=== PATIENT | female | born 1945 | race Caucasian/White ===

== ENCOUNTER 2016-08-14 12:17 | Day surgery (SDC) | payer MEDICARE, OTHER ==
[~2016-08-14 12:17] MED LIST: DIPHENHYDRAMINE HCL 50 MG/ML VIAL ONE; EPINEPHRINE INJ 1 MG/10 ML DISP.SYRIN ONE; FLUMAZENIL INJ 0.5 MG/5 ML VIAL IV ONE; GLUCAGON,HUMAN RECOMB 1 MG INJ ONE; NALOXONE HCL INJ/PF 0.4 MG/1 ML SDV ONE; ONDANSETRON HCL INJ/PF 4 MG/2 ML SDV ONE; PROMETHAZINE HCL INJ 25 MG/1 ML VIAL ONE
[2016-08-14] MEDS: MIDAZOLAM 2 MG/2 ML INJ ONE ×2 (13:06→13:16)
[2016-08-14] MEDS: FENTANYL CITRATE INJ/PF 100 MCG/2 ML AMPUL ONE ×2 (13:08→13:12)
--- NOTE | 2016-08-14 13:27 | Operative Report ---
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 TISSUE REMOVED OR ALTERED: None. COMPLICATIONS: None. ESTIMATED BLOOD LOSS: none. INTRAOPERATIVE FINDINGS: 2 gastric AVMs along the lesser curvature status post ablation PROCEDURE: Patient tolerated the procedure well. No immediate postprocedure complications are noted. Patient is discharged in good condition. Discharge date 08/14/2016. Discharge diet: Regular. Discharge activity: Regular. Patient does have a 2-3 week follow-up to discuss findings. She is instructed to call the office or proceed to the emergency room to any further problems or questions.
[2016-08-14 14:37] VITALS: BP 121/90
[2016-08-14 14:49] LABS: HEMATOCRIT 35.9 % (36.0-47.0); HGB HCT DIFFERENCE -2.9; MEAN CORPUSCULAR HEMOGLOBIN 28.6 pg (27.0-33.4); MEAN CORPUSCULAR HGB CONC 30.8 g/dL (32.0-36.0); RED BLOOD COUNT 3.86 10^6/uL (3.72-5.28); RED CELL DISTRIBUTION WIDTH 18.9 % (11.5-14.0)
[2016-08-14 15:11] LABS: MEAN CORPUSCULAR VOLUME 93 fl (80-97)
== END 2016-08-14 14:40 | disposition home or self-care (01) ==
LOC: END 12:17
PROVIDERS: ATTEND Internal Medicine Gastroenterology
PROC: 0D568ZZ Destruction of Stomach, Via Natural or Artificial Opening Endoscopic (ICD-10-PCS; principal; 2016-08-14 13:00)
DX: Q27.33 Arteriovenous malformation of digestive system vessel (principal); D64.9 Anemia, unspecified
CPT/HCPCS: 43270; 36415; 85027; J2250; J3010; J0171; J1200; J1610; J2310; J2405; J2550; J3490

== ENCOUNTER → 2016-09-15 | Outpatient (CLI) | payer MEDICARE, OTHER ==
[2016-09-15 11:12] LABS: ALANINE AMINOTRANSFERASE 16 U/L (9-52); ALBUMIN 4.6 g/dL (3.5-5.0); ALKALINE PHOSPHATASE 91 U/L (38-126); ANION GAP 9 (5-19); ASPARTATE AMINO TRANSFERASE 16 U/L (14-36); BILIRUBIN,TOTAL 0.5 mg/dL (0.2-1.3); BLOOD UREA NITROGEN 16 mg/dL (7-20); CALCIUM 10.5 mg/dL (8.4-10.2); CARBON DIOXIDE 29 mmol/L (22-30); CHLORIDE 103 mmol/L (98-107); CREATININE RESULT 0.88 mg/dL (0.52-1.25); GLUCOSE 101 mg/dL (75-110); POTASSIUM 5.3 mmol/L (3.6-5.0); SODIUM 140.7 mmol/L (137-145); TOTAL PROTEIN 7.1 g/dL (6.3-8.2)
[2016-09-16 14:23] LABS: ADRENOCORTICOTROPIC HORMONE 6.8 pg/mL (7.2-63.3)
== END ==
LOC: LAB 10:22
PROVIDERS: ATTEND Internal Medicine Endocrinology, Diabetes & Metabolism
DX: E27.9 Disorder of adrenal gland, unspecified (principal); E05.90 Thyrotoxicosis, unspecified without thyrotoxic crisis or storm
CPT/HCPCS: 36415; 80053; 82024; 82088; 82533; 84244

== ENCOUNTER → 2016-10-28 | Outpatient (CLI) | payer MEDICARE, OTHER | LOC: RAD 08:58 | PROVIDERS: ATTEND Internal Medicine Critical Care Medicine | DX: E27.9 Disorder of adrenal gland, unspecified (principal); J45.40 Moderate persistent asthma, uncomplicated; J43.9 Emphysema, unspecified; R07.9 Chest pain, unspecified; R91.8 Other nonspecific abnormal finding of lung field | CPT/HCPCS: 71250 ==

== ENCOUNTER 2017-06-16 07:53 | Outpatient (CLI) | payer MEDICARE, OTHER ==
[~2017-06-16 07:53] MED LIST changes: -DIPHENHYDRAMINE HCL 50 MG/ML VIAL ONE; -EPINEPHRINE INJ 1 MG/10 ML DISP.SYRIN ONE; +FERUMOXYTOL (NON-ESRD) 510 MG/NS 100 ML IV PRN; -FLUMAZENIL INJ 0.5 MG/5 ML VIAL IV ONE; -GLUCAGON,HUMAN RECOMB 1 MG INJ ONE; -NALOXONE HCL INJ/PF 0.4 MG/1 ML SDV ONE; +NORMAL SALINE 250 ML IV PRN; -ONDANSETRON HCL INJ/PF 4 MG/2 ML SDV ONE; -PROMETHAZINE HCL INJ 25 MG/1 ML VIAL ONE
[2017-06-16 09:14] VITALS: BP 150/63
== END 2017-06-16 09:45 | disposition home or self-care (01) ==
LOC: II 07:53 → 5TH 08:05 → II 09:45
PROVIDERS: ATTEND Internal Medicine
PROC: 3E033GC Introduction of Other Therapeutic Substance into Peripheral Vein, Percutaneous Approach (ICD-10-PCS; principal; 2017-06-16)
DX: D50.9 Iron deficiency anemia, unspecified (principal); N18.2 Chronic kidney disease, stage 2 (mild)
CPT/HCPCS: 96365; Q0138

== ENCOUNTER 2017-06-23 07:59 | Outpatient (CLI) | payer MEDICARE, OTHER ==
[2017-06-23 08:22] VITALS: BP 151/70
== END 2017-06-23 09:52 | disposition home or self-care (01) ==
LOC: II 07:59 → 5TH 08:03 → II 09:52
PROVIDERS: ATTEND Internal Medicine
PROC: 3E033GC Introduction of Other Therapeutic Substance into Peripheral Vein, Percutaneous Approach (ICD-10-PCS; principal; 2017-06-23)
DX: D50.9 Iron deficiency anemia, unspecified (principal); N18.2 Chronic kidney disease, stage 2 (mild)
CPT/HCPCS: 96365; Q0138

== ENCOUNTER 2017-08-04 15:11 | Emergency (ER) | payer MEDICARE, OTHER ==
[2017-08-04 15:21] VITALS: BP 96/78
--- NOTE | 2017-08-04 15:43 | ER Document Report ---
ED Wound - General Chief Complaint: Laceration Stated Complaint: RIGHT ARM LACERATION Time Seen by Provider: 08/04/17 15:38 Notes: Bumped right arm on door. + laceration to right forearm. No other injury. Minimal bleding TRAVEL OUTSIDE OF THE [place] IN LAST 30 DAYS: No - HPI Patient complains to provider of: Laceration Occurred: Just prior to arrival Onset/Duration: Sudden Quality of pain: No pain - Related Data Allergies/Adverse Reactions: pantoprazole sodium [From Protonix] Allergy (Intermediate, Verified 08/04/17 15: 12) itching pneumococcal vaccine [Pneumococcal Vaccine] Allergy (Intermediate, Verified 04/13 15:12) Swelling, ITCHING AT SITE ranitidine [Ranitidine] Allergy (Verified 08/04/17 15:12) ITCHING Past Medical History - General Information source: Patient - Social History Smoking Status: Current Every Day Smoker Drug Abuse: None Lives with: Alone Family History: None - Past Medical History Cardiac Medical History: Reports: Hx Atrial Fibrillation, Hx Hypercholesterolemia, Hx Hypertension, Hx Peripheral Vascular Disease - right FEMORAL stent Denies: Hx Congestive Heart Failure, Hx Coronary Artery Disease, Hx Heart Attack, Hx Pulmonary Embolism, Hx Heart Murmur Pulmonary Medical History: Reports: Hx Asthma, Hx Bronchitis, Hx COPD, Hx Pneumonia Denies: Hx Respiratory Failure, Hx Sleep Apnea, Hx Tuberculosis Neurological Medical History: Denies: Hx Cerebrovascular Accident, Hx Seizures Malignancy Medical History: Denies: Hx Leukemia, Hx Lung Cancer GI Medical History: Reports: Hx Gastroesophageal Reflux Disease, Hx Irritable Bowel. Denies: Hx Crohn's Disease, Hx Hiatal Hernia, Hx Liver Failure, Hx Pancreatitis, Hx Ulcer Musculoskeltal Medical History: Reports Hx Arthritis Infectious Medical History: Denies: Hx HIV Past Surgical History: Reports: Hx Appendectomy, Hx Bowel Surgery - colon resection, Hx Breast Surgery - BENIGN BX, Hx Hysterectomy, Hx Vascular Surgery - RIGHT FEMORAL ARTERY STENT. Denies: Hx Section, Hx Cholecystectomy, Hx Colostomy, Hx Coronary Artery Bypass Graft, Hx Gastric Bypass Surgery, Hx Herniorrhaphy, Hx Mastectomy, Hx Pacemaker, Hx Tonsillectomy, Hx Tubal Ligation - Immunizations Hx Diphtheria, Pertussis, Tetanus Vaccination: Yes Hx Pneumococcal Vaccination: 06/30/13 Review of Systems - Review of Systems Constitutional: No symptoms reported Cardiovascular: No symptoms reported Respiratory: No symptoms reported Skin: See HPI Physical Exam - Vital signs Vitals: Temp Pulse Resp BP Pulse Ox 98.2 F 88 16 96/78 L 97 08/04/17 15:20 08/04/17 15:20 08/04/17 15:20 08/04/17 15:20 08/04/17 15:20 Interpretation: Normal - General General appearance: Appears well, Alert - Extremities General upper extremity: Normal inspection, Nontender, Normal color, Normal ROM , Normal temperature General lower extremity: Normal inspection, Nontender, Normal color, Normal ROM , Normal temperature, Normal weight bearing. No: Nathalia's sign - Skin Skin Temperature: Warm Skin Moisture: Dry Skin Color: Normal Notes: 3 cm laceration to right forearm Course - Re-evaluation Re-evalutation: 08/04/17 15:39 laceration repaired withj dermabond . No issues. Tet UTD. - Vital Signs Vital signs: Temp Pulse Resp BP Pulse Ox 98.2 F 88 16 96/78 L 97 08/04/17 15:20 08/04/17 15:20 08/04/17 15:20 08/04/17 15:20 08/04/17 15:20 Procedures - Laceration/Wound Repair Right Upper Arm Wound length (cm): 3 Wound's Depth, Shape: Superficial Anesthetic type: Other - none Wound explored: Clean, No foreign body removed Wound Repaired With: Dermabond Layer Closure?: No Complications: No Discharge - Discharge Clinical Impression: Arm laceration Qualifiers: Encounter type: initial encounter Laterality: right Qualified Code(s): S41.111A - Laceration without foreign body of right upper arm, initial encounter Instructions: Laceration Care (OM) Additional Instructions: Dermabond (Skin Adhesive Closure) Skin adhesive (such as Dermabond) is a quick-drying glue that remains slightly flexible while it holds wound edges together. It can substitute for stitches on some cuts. The film will usually fall off the skin after 5 to 10 days. Keep the wound area clean and dry. Do not soak or scrub the wound. Don't swim. You can shower briefly after 24 hours. Gently blot the area dry with a soft towel. Don't apply ointments. If there is a dressing, change it immediately if it gets wet. Do not place tape directly over the adhesive film, because the tape may pull the film off your skin as you remove it. Don't bump the wound area. If there's risk of injury, keep the area well- padded. Avoid stretching of the skin. Do not scratch or pick at the adhesive film. Avoid prolonged exposure to sunlight or tanning lamps. Return if there is increasing pain, swelling, redness, or drainage, or if the wound edges seem to open or separate. Laceration Care Your laceration has been sutured to keep the skin edges aligned during healing. The time of suture removal depends on the nature and location of your cut. Please follow the care instructions the doctor has outlined for you and return for further care, according to the schedule you've been given. Keep the wound and dressing clean. Unless you were told otherwise, you may shower daily, blotting the wound dry with a clean, unused towel. At other times, If the dressing gets wet or blood soaked, remove it and blot the wound dry, then reapply a new dressing. Unless you were instructed otherwise, dressings should be changed at least daily. If any signs of infection occur (swelling, redness, increasing tenderness, red streaks, tender lumps in the armpit or groin above the laceration, or fever) , see the doctor immediately.
== END 2017-08-04 15:50 | disposition home or self-care (01) ==
LOC: ER 15:11
PROC: 0HQBXZZ Repair Right Upper Arm Skin, External Approach (ICD-10-PCS; principal; 2017-08-04)
DX: S41.111A Laceration without foreign body of right upper arm, initial encounter (principal); F17.200 Nicotine dependence, unspecified, uncomplicated; X58.XXXA Exposure to other specified factors, initial encounter
CPT/HCPCS: 99282

== ENCOUNTER → 2017-11-05 | Outpatient (CLI) | payer MEDICARE, OTHER ==
--- NOTE | 2017-11-05 10:48 | WOMENS IMAGING REPORT ---
EXAM DESCRIPTION: BONE DENSITY HIP/SPINE COMPLETED DATE/TIME: 11/05/2017 9:10 am REASON FOR STUDY: AGE-RELATED OSTEOPROSIS; M81.0 M81.0 AGE-RELATED OSTEOPOROSIS W/O CURRENT PATHOLO TU [facility] COMPARISON: March 2015 TECHNIQUE: Dual-Energy X-ray Absorptiometry (DEXA) of the AP Spine and Hip. LIMITATIONS: None. FINDINGS: LUMBAR SPINE: The bone mineral density (BMD) measured from L1-L4 in the AP projection correlates with a T-score of -2.7, which is osteoporosis as defined by the World Health Organization. -7.9% decrease as compared to the previous study HIP: The bone mineral density (BMD) measured in the left hip correlates with a T-score of -2.6, which is o steoporosis as defined by the World Health Organization. -0.3% decrease as compared to the previous study IMPRESSION: 1. LUMBAR SPINE: Osteoporosis 2. HIP: Osteoporosis COMMENT: The World Health Organization defines low BMD as follows: T-score: Normal: Greater than -1.0 Osteopenia: Between -1.0 and -2.5 Osteoporosis: Less than -2.5 without fractures Established osteoporosis: Less than -2.5 with fractures In general, you may wish to consider: Diagnosis Treatment Follow-up DEXA Normal BMD Prevention 2-3 years Osteopenia Prevention/Therapy 1-2 years Osteoporosis Therapy Yearly TECHNICAL DOCUMENTATION: JOB ID: [id number] [employer]- All Rights Reserved Reading location - IP/workstation name: [email or web address]
== END ==
LOC: WI 08:49
PROVIDERS: ATTEND Internal Medicine Endocrinology, Diabetes & Metabolism
DX: M81.0 Age-related osteoporosis without current pathological fracture (principal)
CPT/HCPCS: 77080

== ENCOUNTER 2017-12-18 05:17 | Day surgery (SDC) | payer MEDICARE, OTHER ==
--- NOTE | 2017-12-16 13:12 | EKG REPORT ---
SEVERITY:- NORMAL ECG - SINUS RHYTHM : Confirmed by: Michael Mead MD 16-Dec-2017 13:11:20
[2017-12-16 13:36] LABS: HEMATOCRIT 36.4 % (36.0-47.0); MEAN CORPUSCULAR HEMOGLOBIN 30.7 pg (27.0-33.4); MEAN CORPUSCULAR VOLUME 93 fl (80-97); PLATELET COUNT 457 10^3/uL (150-450); RED CELL DISTRIBUTION WIDTH 14.8 % (11.5-14.0); WHITE BLOOD COUNT 7.6 10^3/uL (4.0-10.5)
[2017-12-16 13:40] LABS: APPEARANCE,URINE CLEAR; BILIRUBIN,URINE NEGATIVE (NEGATIVE); COLOR,URINE YELLOW; GLUCOSE, URINE NEGATIVE (NEGATIVE); KETONES,URINE NEGATIVE (NEGATIVE); LEUKOCYTE ESTERASE,URINE NEGATIVE (NEGATIVE); NITRITE,URINE NEGATIVE (NEGATIVE); PROTEIN,URINE NEGATIVE (NEGATIVE); URINE SPECIFIC GRAVITY 1.013; UROBILINOGEN,URINE NEGATIVE mg/dL (<2.0)
[2017-12-16 14:06] LABS: INTERNATIONAL RATION (INR) 0.87; PROTHROMBIN TIME 12.3 SEC (11.4-15.4)
[2017-12-16 14:07] LABS: PARTIAL THROMBOPLASTIN TIME 29.9 SEC (23.5-35.8)
[~2017-12-18 05:17] MED LIST changes: +CEFAZOLIN 1 GM/D5W RTU 1 GM/50 ML RTUPB IV PRN; -FERUMOXYTOL (NON-ESRD) 510 MG/NS 100 ML IV PRN; +LACTATED RINGERS 1000 ML IV PRN; +LIDOCAINE 0.5% INJ-PF (5 MG/ML) 50 ML SDV SUBCUT PRN; -NORMAL SALINE 250 ML IV PRN; +RINGERS SOLUTION,LACTATED 1,000 ML IV PRN
[2017-12-18] MEDS ORDERED: KETAMINE HCL INJ 500 MG/10 ML VIAL ONE (07:00)
[2017-12-18] MEDS ORDERED: DEXMEDETOMIDINE INJ 80 MCG/20 ML VIAL IV ONE (07:01)
[2017-12-18] MEDS ORDERED: FENTANYL CITRATE INJ/PF 100 MCG/2 ML AMPUL ONE ×2 (07:01→08:42)
[2017-12-18] MEDS ORDERED: PROPOFOL INJ 200 MG/20 ML VIAL IV ONE (07:01)
[2017-12-18] MEDS ORDERED: MIDAZOLAM 2 MG/2 ML INJ ONE (07:01)
[2017-12-18] MEDS ORDERED: LIDOCAINE 2% INJ-PF (20 MG/ML) 10 ML AMPUL ONE (07:02)
[2017-12-18] MEDS ORDERED: LIDOCAINE 1% INJ-PF (10 MG/ML) 30 ML SDV ONE (07:14)
[2017-12-18] MEDS ORDERED: SODIUM BICARBONATE 8.4% INJ 50 MEQ/50 ML DISP.SYRIN ONE (07:14)
[2017-12-18] MEDS ORDERED: DIPHENHYDRAMINE HCL 50 MG/ML VIAL IV PRN (08:13)
[2017-12-18] MEDS ORDERED: FENTANYL CITRATE INJ/PF 100 MCG/2 ML AMPUL IV PRN ×3 (08:13)
[2017-12-18] MEDS ORDERED: ONDANSETRON HCL INJ/PF 4 MG/2 ML SDV IV PRN (08:13)
[2017-12-18] MEDS ORDERED: CEFAZOLIN INJ 1 GM VIAL ONE (08:55)
--- NOTE | 2017-12-18 09:25 | OPERATIVE REPORT E ---
Operative Report NAME: ELIECER NORMAN : 1945 AGE: 72Y DATE OF SURGERY: 12/18/2017 ROOM: PREOPERATIVE DIAGNOSIS: T6 and T11 thoracic compression fractures with intractable pain. POSTOPERATIVE DIAGNOSIS: T6 and T11 thoracic compression fractures with intractable pain. OPERATIVE PROCEDURE: T6 and T11 balloon kyphoplasty under fluoroscopic guidance. SURGEON: SHINE POLLOCK M.D. INDICATIONS: Intractable pain. SPECIMENS REMOVED: None. ANESTHESIA: MAC. ASSISTANTS: None. BLOOD LOSS: Minimal. COMPLICATIONS: None. PROCEDURE NOTE: After obtaining informed consent and advising the patient of the risks and benefits, including serious neurological injury, bleeding, infection, exacerbation of pain, failure to treat pain, paralysis, quadriparesis, allergic reaction, and , she was taken to the operating room and placed comfortably in the prone position. MAC anesthesia was administered. She was prepped over the thoracic, lumbar, and cervical spine with chlorhexidine and then draped after appropriate drying time. Using fluoroscopy, the spine was evaluated, and beginning at the T6 level, it was identified by counting down from the cervical region and up from the lumbar region. The fracture was identified and compared to MR imaging and was consistent. Beginning using a right lateral paramedian approach, the skin was anesthetized over the selected region as was the subcutaneous and periosteal tissues down to the pedicle on the right at T6. A small incision was made in the skin. The Express trocar was then advanced using peripedicular approach. The vertebral body was entered without difficulty with care being taken not to cross the medial border of the pedicle prior to entering into the vertebral body. The drill was then placed and advanced across midline in the anterior region. Decision was made to proceed with a single trocar approach. The drill was removed. The bone was inflated quite nicely in the central region of the disk, lifting the anterior plate. Attention was then directed towards the T11 fracture. The same approach was utilized. Due to the satisfactory placement of the bone in the midline region raising the endplate, again the decision was made to use a single trocar approach. Once the balloons were suitably filled and the fractures were suitably reduced, the T11 balloon was removed and the filler tubes were placed. A total of 3.4 mL of cement were injected into that region and there was very good filling from pedicle to pedicle. This procedure was then repeated at the T6 level. Good spread was noted. Total of 2.4 mL of cement were utilized and good spread from pedicle to pedicle were noted. Stylettes were placed in the trocars. The cement was allowed to harden and all instrumentation was removed. The region was cleansed and sterile dressings were applied. The patient was then taken to the PACU for further postoperative care and monitoring. DICTATING PHYSICIAN: SHINE POLLOCK M.D. [id number] PHY#: [id number] ID: [id number] JOB#: [id number] ACCT: [id number] cc:SHINE POLLOCK M.D. >
[2017-12-18] MEDS ORDERED: OXYCODONE-ACETAMINOPHEN 5-325 MG TABLET PO PRN (09:30)
--- NOTE | 2017-12-18 12:18 | RADIOLOGY REPORT (SQ) ---
EXAM DESCRIPTION: T SPINE AP/LAT; NO CHG FLUORO COMPLETED DATE/TIME: 12/18/2017 11:35 am REASON FOR STUDY: KYPHOPLASTY T SPINE ASST WITH FLUORO IN OR S22.000A WEDGE COMPRESSION FRACTURE OF UNSP THORACIC VERTEBR Z79.01 CUSTODIAL (CURRENT) USE OF ANTICOAGULANTS COMPARISON: None. FLUOROSCOPY TIME: 4.8 minutes 64 digital images saved to PACS. TECHNIQUE: Intra-operative images acquired during surgical procedure to evaluate progress. NUMBER OF IMAGES: 64 digital images saved to pac's LIMITATIONS: None. FINDINGS: Intra procedural imaging and fluoro during kyphoplasty in the OR. Please see the operativ e report for further details IMPRESSION: Intra procedural imaging and fluoro COMMENT: Quality ID [id number]: Final reports for procedures using fluoroscopy that document radiation exp osure indices, or exposure time and number of fluorographic images (if radiation exposure indices are not available) Please consult full operative report of the attending physician for description of the procedure. TECHNICAL DOCUMENTATION: JOB ID: [id number] [employer] All Rights Reserved Reading location - IP/workstation name: [email or web address]
--- NOTE | 2017-12-18 12:18 | RADIOLOGY REPORT (SQ) ---
EXAM DESCRIPTION: T SPINE AP/LAT; NO CHG FLUORO COMPLETED DATE/TIME: 12/18/2017 11:35 am REASON FOR STUDY: KYPHOPLASTY T SPINE ASST WITH FLUORO IN OR S22.000A WEDGE COMPRESSION FRACTURE OF UNSP THORACIC VERTEBR Z79.01 SENIOR CARE (CURRENT) USE OF ANTICOAGULANTS COMPARISON: None. FLUOROSCOPY TIME: 4.8 minutes 64 digital images saved to PACS. TECHNIQUE: Intra-operative images acquired during surgical procedure to evaluate progress. NUMBER OF IMAGES: 64 digital images saved to pac's LIMITATIONS: None. FINDINGS: Intra procedural imaging and fluoro during kyphoplasty in the OR. Please see the operativ e report for further details IMPRESSION: Intra procedural imaging and fluoro COMMENT: Quality ID 145: Final reports for procedures using fluoroscopy that document radiation exp osure indices, or exposure time and number of fluorographic images (if radiation exposure indices are not available) Please consult full operative report of the attending physician for description of the procedure. TECHNICAL DOCUMENTATION: JOB ID: [id number] [employer]- All Rights Reserved Reading location - IP/workstation name: [email or web address]
[2017-12-18 12:30] VITALS: BP 122/78
== END 2017-12-18 10:50 | disposition home or self-care (01) ==
LOC: OROUT 05:17
PROVIDERS: ATTEND Pain Medicine Interventional Pain Medicine
DX: S22.000A Wedge compression fracture of unspecified thoracic vertebra, initial encounter for closed fracture (principal); X58.XXXA Exposure to other specified factors, initial encounter; M54.14 Radiculopathy, thoracic region; E78.5 Hyperlipidemia, unspecified; M81.0 Age-related osteoporosis without current pathological fracture; I10 Essential (primary) hypertension; J44.9 Chronic obstructive pulmonary disease, unspecified; M11.9 Crystal arthropathy, unspecified; D64.9 Anemia, unspecified; I20.9 Angina pectoris, unspecified; I48.91 Unspecified atrial fibrillation; Z87.891 Personal history of nicotine dependence; Z79.899 Other long term (current) drug therapy; Z79.51 Long term (current) use of inhaled steroids; Z88.8 Allergy status to other drugs, medicaments and biological substances
CPT/HCPCS: 93005; 36415; 85027; 85610; 85730; 81001; 72070; 93010; 22513; Q9966; J2250; J0690 ×2; J3010; J3490 ×4; J2704; 1936

== ENCOUNTER 2018-08-30 09:30 | Day surgery (SDC) | payer MEDICARE, OTHER ==
[~2018-08-30 09:30] MED LIST changes: -CEFAZOLIN 1 GM/D5W RTU 1 GM/50 ML RTUPB IV PRN; -LACTATED RINGERS 1000 ML IV PRN; -LIDOCAINE 0.5% INJ-PF (5 MG/ML) 50 ML SDV SUBCUT PRN; +PROPOFOL INJ 200 MG/20 ML VIAL IV ONE; -RINGERS SOLUTION,LACTATED 1,000 ML IV PRN
[2018-08-30 11:55] VITALS: BP 109/76
--- NOTE | 2018-08-30 12:55 | Operative Report ---
Operative Report DATE OF SURGERY: 08/30/18 Operative Report: The risks, benefits and alternatives of the procedure including the risk of bleeding, perforation requiring surgery have been explained to the patient in detail and informed consent is obtained. The patient is taken back to the endoscopy suite and placed in the left, lateral decubital position. Timeout was called. Propofol medication is administered. The scope was introduced into the patient's rectum. Unfortunately the prep is very poor it does not appear that the patient had. Since there is solid stool starting in the rectum. I was able to advance the scope only partially into the sigmoid area when there was too much stool to proceed. We therefore aborted the procedure. The risks benefits and alternatives of the procedure explained to the patient in detail and informed consent is obtained.A GIF Olympus video scope was inserted into the patient's mouth and hypopharynx, the esophagus is identified intubated and insufflated, the scope was then advanced through the esophagus stomach and duodenum, retroflexion maneuver is done ,the esophagus stomach and first and second portions of the duodenum examined. PREOPERATIVE DIAGNOSIS: Iron deficiency anemia, melena. Diverticulosis POSTOPERATIVE DIAGNOSIS: Gastric antral vascular ectasias that is oozing status post ablation. Diverticulosis without any evidence of diverticulitis. Incomplete colonoscopy due to prep procedure aborted following start of procedure OPERATION: EGD with control of hemorrhage. Diagnostic flexible sigmoidoscopy SURGEON: EFREM GUTIERREZ ANESTHESIA: LMAC TISSUE REMOVED OR ALTERED: As noted above. COMPLICATIONS: None. ESTIMATED BLOOD LOSS: None. INTRAOPERATIVE FINDINGS: As noted above. PROCEDURE: Patient tolerated the procedure well. No immediate postprocedure complications are noted. Patient discharged in good condition. Discharge date 08/30/2018. Discharge diet: Regular. Discharge activity: Regular. 2-3-week follow-up to discuss findings. Patient is instructed to call the office or proceed to the emergency room should there be any further problems or questions. She will need to be rescheduled for her colonoscopy with a better prep. She will need propofol sedation.
== END 2018-08-30 12:00 | disposition home or self-care (01) ==
LOC: END 09:30
PROVIDERS: ATTEND Internal Medicine Gastroenterology
DX: K31.811 Angiodysplasia of stomach and duodenum with bleeding (principal); K57.30 Diverticulosis of large intestine without perforation or abscess without bleeding; K92.1 Melena; D50.0 Iron deficiency anemia secondary to blood loss (chronic); F17.210 Nicotine dependence, cigarettes, uncomplicated; I10 Essential (primary) hypertension; J45.909 Unspecified asthma, uncomplicated; I49.9 Cardiac arrhythmia, unspecified; Z88.8 Allergy status to other drugs, medicaments and biological substances; Z79.899 Other long term (current) drug therapy; Z79.51 Long term (current) use of inhaled steroids; Z88.7 Allergy status to serum and vaccine
CPT/HCPCS: 43255; 45330; J2704; 813

== ENCOUNTER 2018-09-03 08:55 | Day surgery (SDC) | payer MEDICARE, OTHER ==
[2018-09-03] MEDS ORDERED: PROPOFOL INJ 200 MG/20 ML VIAL IV ONE (09:32)
[2018-09-03] MEDS ORDERED: PROMETHAZINE HCL INJ 25 MG/1 ML VIAL IV PRN ×2 (10:19)
[2018-09-03] MEDS ORDERED: DIPHENHYDRAMINE HCL 50 MG/ML VIAL IV PRN (10:19)
[2018-09-03] MEDS ORDERED: MEPERIDINE HCL/PF INJ 25 MG/1 ML DISP.SYRIN IV PRN (10:19)
[2018-09-03] MEDS ORDERED: FENTANYL CITRATE INJ/PF 100 MCG/2 ML AMPUL IV PRN ×3 (10:19)
--- NOTE | 2018-09-03 11:12 | Operative Report ---
Operative Report DATE OF SURGERY: 09/03/18 Operative Report: The risks, benefits and alternatives of the procedure including the risk of bleeding, perforation requiring surgery have been explained to the patient in detail and informed consent has been obtained. The patient is placed in the left, lateral decubital position. Timeout was called. Propofol medication is administered. A rectal examination is done which did not reveal any masses, tears or fissures. An Olympus videoscope was introduced into the patient's rectum. The scope was then carefully advanced all the way to the cecum. The cecum was identified by the usual anatomical landmarks of the ileocecal valve as well as the appendiceal office. Photodocumentation is obtained. The scope was then sequentially pulled back via the various segments of the colon including the ascending colon, hepatic flexure, transverse colon, splenic flexure, descen ding colon and finally into the rectosigmoid portions of the colon. Retroflexion maneuver was performed. Of note there is dark green stool in the colon. PREOPERATIVE DIAGNOSIS: Chronic anemia possible GI bleed. Incomplete prep several days ago POSTOPERATIVE DIAGNOSIS: Transverse colon polyp that was removed via snare polypectomy. Sigmoid colon polyp was removed via snare polypectomy. Normal anastomosis. Diverticulosis without evidence of diverticulitis. Internal hemorrhoids OPERATION: Colonoscopy with snare polypectomy SURGEON: EFREM GUTIERREZ ANESTHESIA: LMAC TISSUE REMOVED OR ALTERED: As noted above. COMPLICATIONS: None. ESTIMATED BLOOD LOSS: None. INTRAOPERATIVE FINDINGS: As noted above. PROCEDURE: Patient tolerated the procedure well. No immediate postprocedure complications are noted. Patient discharged in good condition. Discharge date 09/03/2018. Discharge diet: Regular. Discharge activity: Regular. 2-3-week follow-up to discuss findings. 2-3-year surveillance colonoscopy. Patient is instructed to call the office or proceed to the emergency room should there be any further problems or questions. No sign of GI bleeding as noted. The color of stool is suggestive that she is on iron replacement products.
[2018-09-03 11:26] VITALS: BP 156/74
== END 2018-09-03 11:20 | disposition home or self-care (01) ==
LOC: OROUT 08:55
PROVIDERS: ATTEND Internal Medicine Gastroenterology
DX: K57.30 Diverticulosis of large intestine without perforation or abscess without bleeding (principal); D12.3 Benign neoplasm of transverse colon; D12.5 Benign neoplasm of sigmoid colon; K64.8 Other hemorrhoids; D50.0 Iron deficiency anemia secondary to blood loss (chronic); I10 Essential (primary) hypertension; J45.909 Unspecified asthma, uncomplicated; Z79.899 Other long term (current) drug therapy; F17.210 Nicotine dependence, cigarettes, uncomplicated; Z88.8 Allergy status to other drugs, medicaments and biological substances; Z88.7 Allergy status to serum and vaccine
CPT/HCPCS: 45385; 88305 ×2; J2704; 811

== ENCOUNTER 2018-10-14 14:10 | Observation (INO) | payer MEDICARE ==
--- NOTE | 2018-10-14 16:01 | ER Document Report ---
ED Medical Screen (RME) - General Chief Complaint: Chest Pain Stated Complaint: CHEST PAIN Time Seen by Provider: 10/14/18 15:42 Primary Care Provider: MORENA JUNE PA-C [Primary Care Provider] - Follow up as needed Mode of Arrival: Ambulatory Information source: Patient TRAVEL OUTSIDE OF THE [place] IN LAST 30 DAYS: No - HPI Notes: 10/14/18 15:55 Rapid medical exam in triage : patient is a 73-year-old female history of COPD consistent tobacco abuse, anemia from diverticular bleeds and AVM and chronic anemia presents with report that at 10 AM when she was shopping she had chest discomfort and question of the chest pain radiated up the left arm but she stated she was having a left arm numbness more so than pain. She also describes left arm weakness. The patient reports also having a headache at the same time and felt lightheaded. She reports her chest pain is now resolved but she still has some intermittent numbness and weakness in the left arm. She denies any abdominal pain or nausea or vomiting. She reports chronic dyspnea related to her COPD. No recent medication changes. The patient states it has been several years since she was last transfused. She has not noted any dark colored bowel movements. On exam HEENT atraumatic normocephalic conjunctiva clear Neck supple no reproducible pain cardiovascular Regular rate and rhythm without appreciable murmur gallop or rub. Lungs coarse breath sounds no significant wheezes or rails. Abdomen soft nontender Extremities no cyanosis clubbing or edema. Neurologic exam patient describes a subjective numbness only in the left arm. She reports weakness in the left arm, but I am unable to appreciate any weakness whatsoever on strength testing. There is normal finger to nose exam. There is no cerebellar ataxia. Normal reflexes. No other abnormality. Motor strength excellent in both lower extremities. Question left arm fatigue versus radiation of patient's chest discomfort. I cannot exclude a CVA, and CT scan is ordered, but symptoms are very subjective only without any motor weakness identified in any extremity. EKG is interpreted by me showed normal sinus rhythm heart rate of 84. There is nonspecific ST segment abnormalities. There is no gross evidence for acute MA. Plan CT scan of head chest x-ray EKG lab work and further evaluation. Please see partner's note for further care and management. Which is 103 10/14/18 15:58 - Related Data Allergies/Adverse Reactions: pantoprazole sodium [From Protonix] Allergy (Intermediate, Verified 10/14/18 15:22) itching pneumococcal vaccine [Pneumococcal Vaccine] Allergy (Intermediate, Verified 10/14/18 15:22) Swelling, ITCHING AT SITE ranitidine [Ranitidine] Allergy (Verified 10/14/18 15:22) ITCHING Past Medical History - General Information source: Patient - Social History Chew tobacco use (# tins/day): No Frequency of alcohol use: None Drug Abuse: None Lives with: Family Family history: Reviewed & Not Pertinent - Past Medical History Cardiac Medical History: Reports: Hx Atrial Fibrillation, Hx Coronary Artery Disease - HIGH CHOLESTEROL, HEART BLOCKS, Hx Hypercholesterolemia, Hx Hypertension, Hx Peripheral Vascular Disease - right FEMORAL stent Denies: Hx Congestive Heart Failure, Hx Heart Attack, Hx Pulmonary Embolism, Hx Heart Murmur Pulmonary Medical History: Reports: Hx Asthma, Hx COPD, Hx Pneumonia Denies: Hx Bronchitis, Hx Respiratory Failure, Hx Sleep Apnea, Hx Tuberculosis Neurological Medical History: Denies: Hx Cerebrovascular Accident, Hx Seizures Renal/ Medical History: Denies: Hx Peritoneal Dialysis Malignancy Medical History: Denies: Hx Leukemia, Hx Lung Cancer GI Medical History: Reports: Hx Gastroesophageal Reflux Disease, Hx Irritable Bowel. Denies: Hx Crohn's Disease, Hx Hiatal Hernia, Hx Liver Failure, Hx Pancreatitis, Hx Ulcer Musculoskeltal Medical History: Reports Hx Arthritis Infectious Medical History: Denies: Hx HIV Past Surgical History: Reports: Hx Appendectomy, Hx Bowel Surgery - colon resection, Hx Breast Surgery - BENIGN BX, Hx Hysterectomy, Hx Vascular Surgery - RIGHT FEMORAL ARTERY STENT. Denies: Hx Section, Hx Cholecystectomy, Hx Colostomy, Hx Coronary Artery Bypass Graft, Hx Gastric Bypass Surgery, Hx Herniorrhaphy, Hx Mastectomy, Hx Pacemaker, Hx Tonsillectomy, Hx Tubal Ligation - Immunizations Hx Diphtheria, Pertussis, Tetanus Vaccination: Yes History of Influenza Vaccine for 04/2017 - 09/2017 Season: Yes Influenza Administration Date for 04/2017 - 09/2017 Season: 04/26/18 Physical Exam - Vital signs Vitals: Temp Pulse Resp BP Pulse Ox 97.6 F 94 18 137/65 H 100 10/14/18 14:16 10/14/18 14:16 10/14/18 14:16 10/14/18 14:16 10/14/18 14:16 Course - Vital Signs Vital signs: Temp Pulse Resp BP Pulse Ox 97.6 F 94 18 137/65 H 100 10/14/18 14:16 10/14/18 14:16 10/14/18 14:16 10/14/18 14:16 10/14/18 14:16 Doctor's Discharge - Discharge Referrals: MORENA JUNE, PALeónC [Primary Care Provider] - Follow up as needed
--- NOTE | 2018-10-14 16:40 | RADIOLOGY REPORT (SQ) ---
EXAM DESCRIPTION: CT HEAD WITHOUT COMPLETED DATE/TIME: 10/14/2018 4:22 pm REASON FOR STUDY: headache, prior L arm numbness COMPARISON: None. TECHNIQUE: Axial images acquired through the brain without intravenous contrast. Images reviewed wi th bone, brain and subdural windows. Additional sagittal and coronal reconstructions were generated. Images stored on PACS. All CT scanners at this facility use dose modulation, iterative reconstruction, and/or weight based d osing when appropriate to reduce radiation dose to as low as reasonably achievable (ALARA). [facility]: Dose Right [facility]: CareDose [facility]: Dose Right [facility]: Teradose 4D [facility]: Smart Advanced Patient Care RADIATION DOSE: CT Rad equipment meets quality standard of care and radiation dose reduction techniq ues were employed. CTDIvol: 53.2 mGy. DLP: 1070 mGy-cm. mGy. LIMITATIONS: None. FINDINGS: VENTRICLES: Prominent. CEREBRUM: No masses. No hemorrhage. No midline shift. Areas of low density in the white matter mos t likely due to chronic micro-vascular ischemic change. No evidence for acute infarction. CEREBELLUM: No masses. No hemorrhage. No alteration of density. No evidence for acute infarction. EXTRAAXIAL SPACES: Mild age-related involutional change. No fluid collections. No masses. ORBITS AND GLOBE: No intra- or extraconal masses. Normal contour of globe without masses. CALVARIUM: No fracture. PARANASAL SINUSES: No fluid or mucosal thickening. SOFT TISSUES: No mass or hematoma. OTHER: No other significant finding. IMPRESSION: MILD CHRONIC CHANGES OF ATROPHY AND MICROVASCULAR ISCHEMIA. NO ACUTE PROCESS. EVIDENCE OF ACUTE STROKE: NO. TECHNICAL DOCUMENTATION: JOB ID: [id number] Quality ID # [id number]: Final reports with documentation of one or more dose reduction techniques (e.g., Au tomated exposure control, adjustment of the mA and/or kV according to patient size, use of iterative reconstruction technique) 2010 [employer]- All Rights Reserved Reading location - IP/workstation name: [email or web address]
[2018-10-14 16:47] LABS: ALANINE AMINOTRANSFERASE 27 U/L (9-52); ALKALINE PHOSPHATASE 104 U/L (38-126); ANION GAP 10 (5-19); ASPARTATE AMINO TRANSFERASE 16 U/L (14-36); BILIRUBIN,DIRECT 0.1 mg/dL (0.0-0.4); BILIRUBIN,TOTAL 0.2 mg/dL (0.2-1.3); BLOOD UREA NITROGEN 17 mg/dL (7-20); CALCIUM 9.2 mg/dL (8.4-10.2); CARBON DIOXIDE 23 mmol/L (22-30); CHLORIDE 106 mmol/L (98-107); GLUCOSE 114 mg/dL (75-110); POTASSIUM 4.5 mmol/L (3.6-5.0); SODIUM 138.5 mmol/L (137-145); TOTAL PROTEIN 6.6 g/dL (6.3-8.2)
[2018-10-14 16:58] LABS: NT PRO BNP 467 pg/mL (<450)
[2018-10-14 17:00] LABS: TROPONIN I < 0.012 ng/mL
--- NOTE | 2018-10-14 18:36 | RADIOLOGY REPORT (SQ) ---
EXAM DESCRIPTION: CHEST SINGLE VIEW COMPLETED DATE/TIME: 10/14/2018 4:34 pm REASON FOR STUDY: chest pain COMPARISON: 07/22/2016 EXAM PARAMETERS: NUMBER OF VIEWS: One view. TECHNIQUE: Single frontal radiographic view of the chest acquired. RADIATION DOSE: NA LIMITATIONS: None. FINDINGS: LUNGS AND PLEURA: Hyperexpansion of the lungs. No infiltrate, effusion, or mass. MEDIASTINUM AND HILAR STRUCTURES: No masses. Contour normal. HEART AND VASCULAR STRUCTURES: Heart normal in size. Normal vasculature. BONES: No acute findings. HARDWARE: None in the chest. OTHER: No other significant finding. IMPRESSION: Chronic lung changes with no acute cardiopulmonary findings. TECHNICAL DOCUMENTATION: JOB ID: [id number] [employer]- All Rights Reserved Reading location - IP/workstation name: [email or web address]
[2018-10-14 18:46] LABS: ABSOLUTE BASOPHILS # (AUTO) 0.1 10^3/uL (0.0-0.2); ABSOLUTE LYMPHOCYTES (AUTO) 0.9 10^3/uL (0.5-4.7); ABSOLUTE MONOCYTES (AUTO) 0.7 10^3/uL (0.1-1.4); ABSOLUTE NEUT (AUTO) 6.7 10^3/uL (1.7-8.2); BASOPHILS % (AUTO) 1.2 % (0-2); EOSINOPHILS % (AUTO) 0.1 % (0-6); HEMATOCRIT 21.3 % (36.0-47.0); LYMPHOCYTES % (AUTO) 10.9 % (13-45); MEAN CORPUSCULAR HEMOGLOBIN 25.2 pg (27.0-33.4); MEAN CORPUSCULAR HGB CONC 31.9 g/dL (32.0-36.0); MONOCYTES % (AUTO) 8.3 % (3-13); PLATELET COUNT 438 10^3/uL (150-450); RED CELL DISTRIBUTION WIDTH 18.2 % (11.5-14.0); SEGMENTED NEUTROPHILS % (AUTO) 79.5 % (42-78); TOTAL CELLS COUNTED % (AUTO) 100 %; WHITE BLOOD COUNT 8.4 10^3/uL (4.0-10.5)
[2018-10-14 18:49] LABS: HEMOGLOBIN 6.8 g/dL (12.0-15.5); MEAN CORPUSCULAR VOLUME 79 fl (80-97)
[2018-10-14] MEDS ORDERED: NORMAL SALINE 250 ML IV PRN ×2 (18:59)
--- NOTE | 2018-10-14 18:59 | ER Document Report ---
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 Patient presents to the emergency room with left-sided chest pain radiating to the left arm associated with near syncope. Patient states she has been very weak for the past several days. TRAVEL OUTSIDE OF THE [place] IN LAST 30 DAYS: No - HPI Patient complains to provider of: Chest pain Quality of pain: Dull Chest pain radiation location: Left arm Severity now: Moderate Severity at worst: Moderate Pain level currently: 2 Cardiac risk factors: Hypertension Positive cardiac history: No Associated symptoms: Dizziness, Lightheaded Exacerbated by: Denies Relieved by: Nothing Similar symptoms previously: Yes Recently seen / treated by doctor: Yes - Related Data Allergies/Adverse Reactions: pantoprazole sodium [From Protonix] Allergy (Intermediate, Verified 10/14/18 15:22) itching pneumococcal vaccine [Pneumococcal Vaccine] Allergy (Intermediate, Verified 10/14/18 15:22) Swelling, ITCHING AT SITE ranitidine [Ranitidine] Allergy (Verified 10/14/18 15:22) ITCHING Past Medical History - General Information source: Patient - Social History Smoking Status: Former Smoker Cigarette use (# per day): No Chew tobacco use (# tins/day): No Frequency of alcohol use: None Drug Abuse: None Lives with: Family Family History: None Patient has suicidal ideation: No Patient has homicidal ideation: No - Past Medical History Cardiac Medical History: Reports: Hx Atrial Fibrillation, Hx Coronary Artery Disease - HIGH CHOLESTEROL, HEART BLOCKS, Hx Hypercholesterolemia, Hx Hypertension, Hx Peripheral Vascular Disease - right FEMORAL stent Denies: Hx Congestive Heart Failure, Hx Heart Attack, Hx Pulmonary Embolism, Hx Heart Murmur Pulmonary Medical History: Reports: Hx Asthma, Hx COPD, Hx Pneumonia Denies: Hx Bronchitis, Hx Respiratory Failure, Hx Sleep Apnea, Hx Tub erculosis Neurological Medical History: Denies: Hx Cerebrovascular Accident, Hx Seizures Renal/ Medical History: Denies: Hx Peritoneal Dialysis Malignancy Medical History: Denies: Hx Leukemia, Hx Lung Cancer GI Medical History: Reports: Hx Gastroesophageal Reflux Disease, Hx Irritable Bowel. Denies: Hx Crohn's Disease, Hx Hiatal Hernia, Hx Liver Failure, Hx Pancreatitis, Hx Ulcer Musculoskeletal Medical History: Reports Hx Arthritis Infectious Medical History: Denies: Hx HIV Past Surgical History: Reports: Hx Appendectomy, Hx Bowel Surgery - colon resection, Hx Breast Surgery - BENIGN BX, Hx Hysterectomy, Hx Vascular Surgery - RIGHT FEMORAL ARTERY STENT. Denies: Hx Section, Hx Cholecystectomy, Hx Colostomy, Hx Coronary Artery Bypass Graft, Hx Gastric Bypass Surgery, Hx Herniorrhaphy, Hx Mastectomy, Hx Pacemaker, Hx Tonsillectomy, Hx Tubal Ligation - Immunizations Hx Diphtheria, Pertussis, Tetanus Vaccination: Yes Hx Pneumococcal Vaccination: 06/30/13 Review of Systems - Review of Systems Constitutional: denies: Chills, Fever EENT: No symptoms reported Cardiovascular: See HPI Respiratory: No symptoms reported Gastrointestinal: No symptoms reported Genitourinary: No symptoms reported Female Genitourinary: No symptoms reported Musculoskeletal: No symptoms reported Skin: No symptoms reported Hematologic/Lymphatic: No symptoms reported Neurological/Psychological: See HPI Physical Exam - Vital signs Vitals: Temp Pulse Resp BP Pulse Ox 97.6 F 94 18 137/65 H 100 10/14/18 14:16 10/14/18 14:16 10/14/18 14:16 10/14/18 14:16 10/14/18 14:16 Notes: Physical exam: GENERAL: Vision is alert and oriented x3, answering questions. Blood pressure is 121/60, pulse 82, respiratory rate 15, O2 sat 100% on room air. HEAD: Atraumatic, normocephalic. EYES: Pupils equal round and reactive to light, extraocular movements intact, sclera anicteric, conjunctiva are normal. ENT: TMs normal, nares patent, oropharynx clear without exudates. Moist mucous membranes. NECK: Normal range of motion, supple without obvious mass or JVD. LUNGS: Breath sounds clear to auscultation bilaterally and equal. No wheezes rales or rhonchi. HEART: Regular rate and rhythm without murmurs, rubs or gallops. ABDOMEN: Soft, normoactive bowel sounds. No tenderness to palpation. No guarding, no rebound. No masses appreciated. EXTREMITIES: Normal range of motion, no pitting or edema. No clubbing or cyanosis. NEUROLOGICAL: Cranial nerves II through XII grossly intact. Normal speech, moving all extremities. PSYCH: Normal mood, normal affect. SKIN: Warm, Dry, normal turgor, no rashes or lesions noted. Course - Re-evaluation Re-evalutation: 10/14/18 19:49 I did discuss the case with Dr. Murrieta (patient's GI doctor) who has performed an EGD and colonoscopy a few weeks ago. He said there was no evidence of AVMs at this time. I did discuss with him that the stool was brown and trace positive. Given the anemia, he agreed with the transfusion. Given the recent EGD and colonoscopy and the fact that the patient has not had any melena, he thought acute bleed was less likely. Therefore he thought admission here was appropriate. He is willing to follow the patient in the outpatient. I did discuss the case with Dr. Alonso who said he would follow the patient and requested iron studies which I have added. - Vital Signs Vital signs: Temp Pulse Resp BP Pulse Ox 97.9 F 64 15 130/53 H 93 10/15/18 03:39 10/15/18 03:39 10/15/18 03:39 10/15/18 03:39 10/15/18 03:39 - Laboratory Result Diagrams: 10/14/18 18:28 10/14/18 16:19 Laboratory results interpreted by me: 10/14/18 10/14/18 10/14/18 16:19 16:19 16:19 RBC Hgb Hct MCV MCH MCHC RDW Seg Neutrophils % Lymphocytes % Est GFR (Non-Af Amer) 59 L Glucose 114 H Iron 18.8 L NT-Pro-B Natriuret Pep 467 H Crossmatch 10/14/18 10/14/18 18:28 19:07 RBC 2.70 L Hgb 6.8 L Hct 21.3 L MCV 79 L D MCH 25.2 L MCHC 31.9 L RDW 18.2 H Seg Neutrophils % 79.5 H Lymphocytes % 10.9 L Est GFR (Non-Af Amer) Glucose Iron NT-Pro-B Natriuret Pep Crossmatch See Detail - Diagnostic Test Radiology reviewed: Image reviewed, Reports reviewed - CT shows no obvious stroke or bleed - EKG Interpretation by Me Rate: Normal Rhythm: NSR - EKG shows normal sinus rhythm with a ventricular rate of 65, no acute ST-T wave changes Critical Care Note - Critical Care Note Total time excluding time spent on procedures (mins): 60 Discharge - Discharge Clinical Impression: Chest pain, Anemia Condition: Stable Disposition: ADMITTED OBSERVATION Admitting Provider: Hospitalist León Holguin Unit Admitted: Telemetry
[2018-10-14 19:35] LABS: ABSOLUTE RETICS # 0.065 10^6/uL (0.028-0.122)
[2018-10-14 19:40] LABS: IRON(TIBC) 18.8 ug/dL (37-170)
[2018-10-14 20:49] LABS: FOLATE > 20.00 ng/mL (>2.76)
[2018-10-14] MEDS ORDERED: TEMAZEPAM 7.5 MG CAPSULE PO PRN (20:54)
[2018-10-14] MEDS ORDERED: MAG HYDROX/AL HYDROX/SIMETH SUSP 30 ML UDCUP PO PRN ×2 (20:54→21:10)
[2018-10-14] MEDS ORDERED: MAGNESIUM HYDROXIDE SUSP 30 ML UDCUP PO PRN ×2 (20:54→21:10)
[2018-10-14] MEDS ORDERED: PROMETHAZINE HCL INJ 25 MG/1 ML VIAL IV PRN (20:54)
[2018-10-14] MEDS ORDERED: MORPHINE SULFATE 10 MG/ML INJ IV PRN ×4 (21:10→21:33)
[2018-10-14] MEDS ORDERED: ALBUTEROL SULFATE 0.083% NEB 2.5 MG/3 ML AMPUL NEB PRN (21:10)
[2018-10-14] MEDS ORDERED: ACETAMINOPHEN 325 MG TABLET PO PRN (21:10)
[2018-10-14] MEDS ORDERED: HYDRALAZINE HCL INJ/PF 20 MG/1 ML SDV IV PRN (21:10)
[2018-10-14] MEDS ORDERED: POLYETHYLENE GLYCOL 3350 POWDER 17 GM/1 PACKET PO PRN (21:14)
[2018-10-14] MEDS ORDERED: FUROSEMIDE INJ/PF 20 MG/2 ML SDV IV ONE (21:45)
[2018-10-14] MEDS ORDERED: DIPHENHYDRAMINE HCL 25 MG CAPSULE PO ONE (21:45)
[2018-10-14] MEDS ORDERED: ACETAMINOPHEN 325 MG TABLET PO ONE (21:45)
[2018-10-14] MEDS ORDERED: SIMVASTATIN 10 MG TABLET PO SCH (22:00)
[2018-10-14] MEDS ORDERED: LATANOPROST 0.005% OPH SOLN 2.5 ML OU SCH (22:00)
--- NOTE | 2018-10-14 22:50 | EKG REPORT ---
SEVERITY:- BORDERLINE ECG - SINUS RHYTHM PROBABLE LEFT ATRIAL ABNORMALITY : Confirmed by: Sergey Mike 14-Oct-2018 22:49:50
--- NOTE | 2018-10-14 23:36 | PDOC H&P ---
History of Present Illness Admission Date/PCP: 10/14/18 20:00 PCP: Berry Gaitan MD Patient complains of: Chest pain History of Present Illness: ELIECER NORMAN is a 73 year old female who presented to the emergency room with an acute history of chest pain. Patient admits that, while shopping in the grocery store today, she suddenly developed pain in the center and left portion of her lower anterior chest which radiated down her left arm to her hand and was accompanied by the sensation that she "was about to pass out". She describes the pain as a constant, moderate dull pressure made worse by activity or exertion. The pain began shortly before her presentation to the emergency room and resolved after her arrival. She adds that she has experienced gradually progressive generalized weakness for the last 7-10 days. She admits several prior similar episodes associated with her coronary artery disease, atrial fibrillation and chronic anemia. She has not identified other aggravating or ameliorating factors for her chest pain. In the emergency room she was found to have a hemoglobin of 6.8 and a hematocrit of 21% with negative cardiac enzymes and EKG showing no evidence of acute myocardial ischemia or injury. Because of her extensive cardiac history and the need to obtain acute transfusion the patient will be admitted to observation status for further evaluation and treat ment. Past Medical History Cardiac Medical History: Reports: Atrial Fibrillation, Coronary Artery Disease - HIGH CHOLESTEROL, HEART BLOCKS, Hyperlipidema, Hypertension, Peripheral Vascular Disease - right FEMORAL stent Denies: Congestive Heart Failure, Myocardial Infarction, Pulmonary Embolism, Heart Murmur Pulmonary Medical History: Reports: Asthma, Chronic Obstructive Pulmonary Disease (COPD), Pneumonia Denies: Bronchitis, Respiratory Failure, Sleep Apnea, Tuberculosis EENT Medical History: Reports: Eyes - Wears corrective lenses Denies: Cataracts Neurological Medical History: Denies: Hemorrhagic CVA, Ischemic CVA, Seizures Endocrine Medical History: Denies: Diabetes Mellitus Type 1, Diabetes Mellitus Type 2, Hyperthyroidism, Hypothyroidism, Obesity Renal/ Medical History: Denies: Chronic Kidney Disease, Nephrolithiasis Malignancy Medical History: Reports: None GI Medical History: Reports: Gastroesophageal Reflux Disease, Other - AVM malformations of intestinal tract Denies: Cirrhosis, Crohn's Disease, Hepatitis, Hiatal Hernia, Ulcerative Colitis Musculoskeltal Medical History: Reports: Arthritis Denies: Gout Skin Medical History: Denies: Eczema, Psoriasis Psychiatric Medical History: Denies: Alcohol Dependency, Substance Abuse, Tobacco Dependency Traumatic Medical History: Reports: None Hematology: Reports: Anemia, Bleeding Tendencies - GI AVM malformation Infectious Medical History: Reports: None Past Surgical History Past Surgical History: Reports: Appendectomy, Hysterectomy, Vascular Surgery - RIGHT FEMORAL ARTERY STENT, Other - EGDs and colonoscopies Social History Information Source: Patient Lives with: Family Smoking Status: Former Smoker Frequency of Alcohol Use: None Hx Recreational Drug Use: No Drugs: None Hx Prescription Drug Abuse: No - Advance Directive Resuscitation Status: Full Code Surrogate healthcare decision maker:: Jesus Gardner Family History Family History: CAD, Hypertension, Malignancy - Breast, ovarian and skin cancers, as well as leukemia. denies: DM Parental Family History Reviewed: Yes Children Family History Reviewed: No Sibling(s) Family History Reviewed.: Yes Medication/Allergy Home Medications: Acetaminophen [Tylenol 325 mg Tablet] 325 mg PO Q8HP PRN 10/14/18 Albuterol Sulfate [Proair HFA Inhalation Aerosol 8.5 gm MDI] 2 puff IH Q6HP PRN 10/14/18 Albuterol Sulfate [Ventolin 0.083% Neb 2.5 mg/3 mL Ampul] 1 vial NEB Q6HP PRN 10/14/18 Diltiazem HCl [Diltiazem 24Hr ER] 240 mg PO DAILY 10/14/18 Docusate Sodium [Colace 100 mg Capsule] 100 mg PO BID 10/14/18 Fexofenadine HCl [Jazmin] 180 mg PO DAILY 10/14/18 Flecainide Acetate [Tambocor 100 mg Tablet] 100 mg PO BID 10/14/18 Folic Acid [Folvite 1 mg Tablet] 1 mg PO DAILY 10/14/18 Latanoprost [Xalatan 0.005% Oph Soln 2.5 ml] 1 drop OU QHS 10/14/18 Losartan Potassium [Cozaar 50 mg Tablet] 50 mg PO DAILY 10/14/18 Lubiprostone [Amitiza 8 Mcg Capsule] 8 mcg PO BID 10/14/18 Polyethylene Glycol 3350 [Miralax Powder 17 gm/Packet] 17 gm PO DAILYP PRN 10/14/18 Simvastatin [Zocor 10 mg Tablet] 10 mg PO QHS 10/14/18 Tiotropium [place] [Spiriva Respimat] 2 puff IH DAILY 10/14/18 Venlafaxine HCl ER [Effexor Xr 37.5 mg Cap.sr] 37.5 mg PO DAILY 10/14/18 Vit C/E/Zn/Coppr/Lutein/Zeaxan [Preservision Areds 2 Softgel] 2 cap PO DAILY 10/14/18 Allergies/Adverse Reactions: pantoprazole sodium [From Protonix] Allergy (Intermediate, Verified 10/14/18 15:22) itching pneumococcal vaccine [Pneumococcal Vaccine] Allergy (Intermediate, Verified 10/14/18 15:22) Swelling, ITCHING AT SITE ranitidine [Ranitidine] Allergy (Verified 10/14/18 15:22) ITCHING Review of Systems Constitutional: PRESENT: as per HPI, weakness. ABSENT: chills, fever(s) Eyes: ABSENT: visual disturbances, other - Ocular pain Ears: ABSENT: hearing changes, other - Ear pain Nose, Mouth, and Throat: ABSENT: mouth pain, sore throat Cardiovascular: PRESENT: as per HPI, chest pain, dyspnea on exertion. ABSENT: edema, orthropnea, palpitations Respiratory: ABSENT: cough, dyspnea Gastrointestinal: ABSENT: abdominal pain, constipation, diarrhea, nausea, vomiting Genitourinary: ABSENT: dysuria, hematuria Musculoskeletal: ABSENT: back pain, joint swelling Integumentary: ABSENT: pruritus, rash Neurological: PRESENT: as per HPI, other - Near syncope. ABSENT: confusion, convulsions, focal weakness, memory loss Psychiatric: ABSENT: anxiety, depression Endocrine: ABSENT: cold intolerance, heat intolerance Hematologic/Lymphatic: ABSENT: easy bleeding, easy bruising Physical Exam Vital Signs: Temp Pulse Resp BP Pulse Ox 97.6 F 94 24 H 140/51 H 97 10/14/18 14:16 10/14/18 14:16 10/14/18 19:01 10/14/18 19:01 10/14/18 19:01 Intake & Output 10/12/18 10/13/18 10/14/18 23:59 23:59 23:59 Weight 40 kg General appearance: PRESENT: no acute distress, cooperative, thin, other - Malnourished Head exam: PRESENT: atraumatic, normocephalic Eye exam: PRESENT: conjunctiva pale. ABSENT: scleral icterus Ear exam: PRESENT: normal external ear exam. ABSENT: bleeding Mouth exam: PRESENT: dry mucosa, neck supple Neck exam: ABSENT: JVD, thyromegaly, tracheal deviation Respiratory exam: PRESENT: prolonged expiratory phas - Breath sounds slightly decreased in all lung vance, symmetrical, unlabored Cardiovascular exam: PRESENT: irregular rhythm - Irregularly irregular rate and rhythm. ABSENT: clicks, gallop, rubs Pulses: PRESENT: normal radial pulses, normal dorsalis pedis pul Vascular exam: PRESENT: pallor. ABSENT: normal capillary refill - Slightly delayed capillary refill of 3 seconds GI/Abdominal exam: PRESENT: normal bowel sounds, soft Rectal exam: PRESENT: deferred Extremities exam: ABSENT: joint swelling, pedal edema Musculoskeletal exam: PRESENT: full ROM, other - Emaciated with decreased muscle masses in all extremities Neurological exam: PRESENT: alert, awake, oriented to person, oriented to place, oriented to time, oriented to situation, CN II-XII grossly intact. ABSENT: motor sensory deficit Psychiatric exam: PRESENT: appropriate affect, normal mood Skin exam: PRESENT: dry, intact, warm. ABSENT: jaundice, rash, urticaria Results Laboratory Results: 10/14/18 18:28 10/14/18 16:19 10/14/18 10/14/18 10/14/18 16:19 16:19 18:28 WBC Cancelled 8.4 RBC Cancelled 2.70 L Hgb Cancelled 6.8 L Hct Cancelled 21.3 L MCV Cancelled 79 L D MCH Cancelled 25.2 L MCHC Cancelled 31.9 L RDW Cancelled 18.2 H Plt Count Cancelled 438 Seg Neutrophils % Cancelled 79.5 H Lymphocytes % Cancelled 10.9 L Monocytes % Cancelled 8.3 Eosinophils % Cancelled 0.1 Basophils % Cancelled 1.2 Absolute Neutrophils Cancelled 6.7 Absolute Lymphocytes Cancelled 0.9 Absolute Monocytes Cancelled 0.7 Absolute Eosinophils Cancelled 0.0 Absolute Basophils Cancelled 0.1 Retic Count (auto) Absolute Retic Sodium 138.5 Potassium 4.5 Chloride 106 Carbon Dioxide 23 Anion Gap 10 BUN 17 Creatinine 0.93 Est GFR ( Amer) > 60 Est GFR (Non-Af Amer) 59 L Glucose 114 H Calcium 9.2 Magnesium 2.1 Total Bilirubin 0.2 AST 16 ALT 27 Alkaline Phosphatase 104 Total Protein 6.6 Albumin 4.0 Blood Type Antibody Screen 10/14/18 10/14/18 18:28 19:07 WBC RBC Hgb Hct MCV MCH MCHC RDW Plt Count Seg Neutrophils % Lymphocytes % Monocytes % Eosinophils % Basophils % Absolute Neutrophils Absolute Lymphocytes Absolute Monocytes Absolute Eosinophils Absolute Basophils Retic Count (auto) 2.40 Absolute Retic 0.065 Sodium Potassium Chloride Carbon Dioxide Anion Gap BUN Creatinine Est GFR ( Amer) Est GFR (Non-Af Amer) Glucose Calcium Magnesium Total Bilirubin AST ALT Alkaline Phosphatase Total Protein Albumin Blood Type A POSITIVE Antibody Screen NEGATIVE 10/14/18 16:19 Troponin I < 0.012 NT-Pro-B Natriuret Pep 467 H Impressions: Head CT 10/14/18 15:52 IMPRESSION: MILD CHRONIC CHANGES OF ATROPHY AND MICROVASCULAR ISCHEMIA. NO ACUTE PROCESS. EVIDENCE OF ACUTE STROKE: NO. Chest X-Ray 10/14/18 15:53 IMPRESSION: Chronic lung changes with no acute cardiopulmonary findings. Assessment and Plan - Diagnosis (1) Chest pain Qualifiers: Chest pain type: precordial pain Qualified Code(s): R07.2 - Precordial pain Is this a current diagnosis for this admission?: Yes Plan: Patient's chest pain will be evaluated with serial cardiac enzymes and EKG's. Patient be monitored on a telemetry floor. She will receive morphine sulfate 2- 4 mg IV every 2 hours as needed on a sliding scale basis. Chest pain is likely to have been induced or at least contributed to by the patient's current anemia. Transfusion should help to resolve her chest pain and any anemia associated cardiac ischemia (2) Anemia due to blood loss, chronic Is this a current diagnosis for this admission?: Yes Plan: Patient received 2 units of packed red blood cells via transfusion. Follow-up of her chronic blood loss anemia will be on an outpatient basis. (3) Near syncope Is this a current diagnosis for this admission?: Yes Plan: Patient will be treated with cardiac monitoring via telemetry. Her near syncope was most likely hypotensive secondary to her anemia. Her anemia will be corrected by transfusion and the patient will be observed closely for recurrent symptomology. Serial CBC and metabolic profile determinations, as well as general appropriate blood chemistries will be obtained to evaluate all potential causes of near syncope. (4) Coronary artery disease Qualifiers: Coronary Disease-Associated Artery/Lesion type: [place] artery [place] vs. transplanted heart: [place] heart Associated angina: with stable angina Qualified Code(s): I25.118 - Atherosclerotic heart disease of [place] coronary artery with other forms of angina pectoris Is this a current diagnosis for this admission?: Yes Plan: Patient will be continued on her current therapeutic regimen for coronary artery disease during her hospital course unless changes are required due to her clinical situation. - Time Time Spent with patient: 35 or more minutes Medications reviewed and adjusted accordingly: Yes Anticipated discharge: Home Within: within 24 hours - Inpatient Certification Based on my medical assessment, after consideration of the patient's comorbidities, presenting symptoms, or acuity I expect that the services needed warrant INPATIENT care.: No I certify that my determination is in accordance with my understanding of Medicare's requirements for reasonable and necessary INPATIENT services [42 CFR 412.3e].: No Medical Necessity: Significant Comorbidiites Make Outpatient Treatment Too Risky, Need Close Monitoring Due to Risk of Patient Decompensation, Need For Continuous Telemetry Monitoring, Need for Neurological Checks, Need for Pain Control, Risk of Complication if Not Cared For in Hospital, Other - Need for transfusion
[2018-10-14] MEDS: IPRATROPIUM BROMIDE 0.02% NEB 0.5 MG/2.5 ML AMPUL NEB SCH (23:46)
[2018-10-14] MEDS: LEVALBUTEROL HCL NEB 1.25 MG/3 ML AMPUL NEB SCH (23:46)
[2018-10-15 06:15] LABS: ABSOLUTE BASOPHILS # (AUTO) 0.1 10^3/uL (0.0-0.2); ABSOLUTE EOSINOPHILS # (AUTO) 0.1 10^3/uL (0.0-0.6); ABSOLUTE MONOCYTES (AUTO) 0.8 10^3/uL (0.1-1.4); ABSOLUTE NEUT (AUTO) 3.9 10^3/uL (1.7-8.2); EOSINOPHILS % (AUTO) 1.7 % (0-6); LYMPHOCYTES % (AUTO) 16.6 % (13-45); MEAN CORPUSCULAR HEMOGLOBIN 26.4 pg (27.0-33.4); MEAN CORPUSCULAR HGB CONC 33.2 g/dL (32.0-36.0); MEAN CORPUSCULAR VOLUME 80 fl (80-97); MONOCYTES % (AUTO) 14.1 % (3-13); PLATELET COUNT 337 10^3/uL (150-450); RED BLOOD COUNT 3.64 10^6/uL (3.72-5.28); RED CELL DISTRIBUTION WIDTH 16.8 % (11.5-14.0); SEGMENTED NEUTROPHILS % (AUTO) 66.6 % (42-78); TOTAL CELLS COUNTED % (AUTO) 100 %; WHITE BLOOD COUNT 5.8 10^3/uL (4.0-10.5)
[2018-10-15 07:17] LABS: HEMOGLOBIN 9.6 g/dL (12.0-15.5)
[2018-10-15] MEDS ORDERED: BUDESONIDE NEB 0.5 MG/2 ML AMPUL NEB SCH (08:00)
[2018-10-15] MEDS: IPRATROPIUM BROMIDE 0.02% NEB 0.5 MG/2.5 ML AMPUL NEB SCH (08:01)
[2018-10-15] MEDS: LEVALBUTEROL HCL NEB 1.25 MG/3 ML AMPUL NEB SCH (08:01)
--- NOTE | 2018-10-15 08:48 | PDOC CONSULTATION ---
Consultation Consult Date: 10/15/18 Attending physician:: HOLLEY OLMSTEAD Consult reason:: Severe recurrent iron deficiency anemia History of Present Illness Admission Date/PCP: 10/14/18 20:00 URIEL KAUR MD Patient complains of: Fatigue, dizziness History of Present Illness: ELIECER NORMAN is a 73 year old female with history of recurrent AVMs, recurrent iron deficiency anemia with multiple endoscopies over the last few years. We have been checking her iron levels monthly and on average giving her 2 g of iron every 2 months. Recently her bleeding is been even more brisk, she had colonoscopy and EGD done by Dr. Murrieta about a month ago. AVMs were cauteriz ed during that endoscopy. Over the last few days she has been having increased shortness of breath and fatigue, ultimately she presented to the ED with shortness of breath and chest pain, she was found to have a hemoglobin in the 6 range. She was admitted for chest pain workup as well as transfusion. She was given 2 units of packed red blood cell. Ferritin was drawn and was 11, today I am giving her a dose of IV iron. She feels much better hemoglobin is up to 9. Past Medical History Cardiac Medical History: Reports: Atrial Fibrillation, Coronary Artery Disease - HIGH CHOLESTEROL, HEART BLOCKS, Hyperlipidema, Hypertension, Peripheral Vascular Disease - right FEMORAL stent Denies: Congestive Heart Failure, Myocardial Infarction, Pulmonary Embolism, Heart Murmur Pulmonary Medical History: Reports: Asthma, Chronic Obstructive Pulmonary Disease (COPD), Pneumonia Denies: Bronchitis, Respiratory Failure, Sleep Apnea, Tuberculosis EENT Medical History: Reports: Eyes - Wears corrective lenses Denies: Cataracts Neurological Medical History: Denies: Hemorrhagic CVA, Ischemic CVA, Seizures Endocrine Medical History: Denies: Diabetes Mellitus Type 1, Diabetes Mellitus Type 2, Hyperthyroidism, Hypothyroidism, Obesity Renal/ Medical History: Denies: Chronic Kidney Disease, End Stage Renal Disease, Nephrolithiasis Malignancy Medical History: Reports: None Denies: Leukemia, Lung Cancer GI Medical History: Reports: Gastroesophageal Reflux Disease, Other - SHE solorzano alformations of intestinal tract Denies: Cirrhosis, Crohn's Disease, Hepatitis, Hiatal Hernia, Ulcerative Colitis Musculoskeltal Medical History: Reports: Arthritis Denies: Gout Skin Medical History: Denies: Eczema, Psoriasis Psychiatric Medical History: Reports: Depression Denies: Alcohol Dependency, Bipolar Disorder, Substance Abuse, Tobacco Dependency Traumatic Medical History: Reports: None Hematology: Reports: Anemia, Bleeding Tendencies - GI AVM malformation Denies: Hemophilia, Sickle Cell Disease Infectious Medical History: Reports: None Denies: HIV Past Surgical History Past Surgical History: Reports: Appendectomy, Hysterectomy, Vascular Surgery - RIGHT FEMORAL ARTERY STENT, Other - EGDs and colonoscopies Denies: Section, Cholecystectomy, Colostomy, Coronary Artery Bypass Graft, Gastric Bypass Surgery, Herniorrhaphy, Mastectomy, Pacemaker, Tonsillectomy, Tubal Ligation Social History Information Source: Patient Lives with: Family Smoking Status: Former Smoker Frequency of Alcohol Use: None Hx Recreational Drug Use: No Drugs: None Hx Prescription Drug Abuse: No - Advance Directive Resuscitation Status: Full Code Family History Family History: None Parental Family History Reviewed: Yes Children Family History Reviewed: Yes Sibling(s) Family History Reviewed.: Yes Medication/Allergy Home Medications: Acetaminophen [Tylenol 325 mg Tablet] 325 mg PO Q8HP PRN 10/14/18 Albuterol Sulfate [Proair HFA Inhalation Aerosol 8.5 gm MDI] 2 puff IH Q6HP PRN 10/14/18 Albuterol Sulfate [Ventolin 0.083% Neb 2.5 mg/3 mL Ampul] 1 vial NEB Q6HP PRN 10/14/18 Diltiazem HCl [Diltiazem 24Hr ER] 240 mg PO DAILY 10/14/18 Docusate Sodium [Colace 100 mg Capsule] 100 mg PO BID 10/14/18 Fexofenadine HCl [Jazmin] 180 mg PO DAILY 10/14/18 Flecainide Acetate [Tambocor 100 mg Tablet] 100 mg PO BID 10/14/18 Folic Acid [Folvite 1 mg Tablet] 1 mg PO DAILY 10/14/18 Latanoprost [Xalatan 0.005% Oph Soln 2.5 ml] 1 drop OU QHS 10/14/18 Losartan Potassium [Cozaar 50 mg Tablet] 50 mg PO DAILY 10/14/18 Lubiprostone [Amitiza 8 Mcg Capsule] 8 mcg PO BID 10/14/18 Polyethylene Glycol 3350 [Miralax Powder 17 gm/Packet] 17 gm PO DAILYP PRN 10/14/18 Simvastatin [Zocor 10 mg Tablet] 10 mg PO QHS 10/14/18 Tiotropium [place] [Spiriva Respimat] 2 puff IH DAILY 10/14/18 Venlafaxine HCl ER [Effexor Xr 37.5 mg Cap.sr] 37.5 mg PO DAILY 10/14/18 Vit C/E/Zn/Coppr/Lutein/Zeaxan [Preservision Areds 2 Softgel] 2 cap PO DAILY 10/14/18 Allergies/Adverse Reactions: pantoprazole sodium [From Protonix] Allergy (Intermediate, Verified 10/14/18 15:22) itching pneumococcal vaccine [Pneumococcal Vaccine] Allergy (Intermediate, Verified 10/14/18 15:22) Swelling, ITCHING AT SITE ranitidine [Ranitidine] Allergy (Verified 10/14/18 15:22) ITCHING Review of Systems Constitutional: ABSENT: chills, fever(s), headache(s), weight gain, weight loss Eyes: ABSENT: visual disturbances Ears: ABSENT: hearing changes Cardiovascular: ABSENT: chest pain, dyspnea on exertion, edema, orthropnea, palpitations Respiratory: ABSENT: cough, hemoptysis Gastrointestinal: ABSENT: abdominal pain, constipation, diarrhea, hematemesis, hematochezia, nausea, vomiting Genitourinary: ABSENT: dysuria, hematuria Musculoskeletal: ABSENT: joint swelling Integumentary: ABSENT: rash, wounds Neurological: ABSENT: abnormal gait, abnormal speech, confusion, dizziness, focal weakness, syncope Psychiatric: ABSENT: anxiety, depression, homidical ideation, suicidal ideation Endocrine: ABSENT: cold intolerance, heat intolerance, polydipsia, polyuria Hematologic/Lymphatic: ABSENT: easy bleeding, easy bruising Physical Exam Vital Signs: Temp Pulse Resp BP Pulse Ox 97.9 F 66 16 130/53 H 95 10/15/18 03:39 10/15/18 08:01 10/15/18 08:01 10/15/18 03:39 10/15/18 08:01 Intake & Output 10/14/18 10/15/18 10/16/18 06:59 06:59 06:59 Intake Total 1250 Balance 1250 Weight 40.3 kg General appearance: PRESENT: no acute distress, well-developed, well-nourished Head exam: PRESENT: atraumatic, normocephalic Eye exam: PRESENT: conjunctiva pink, EOMI, PERRLA. ABSENT: scleral icterus Ear exam: PRESENT: normal external ear exam Mouth exam: PRESENT: moist, tongue midline Neck exam: ABSENT: carotid bruit, JVD, lymphadenopathy, thyromegaly Respiratory exam: PRESENT: clear to auscultation brayan. ABSENT: rales, rhonchi, wheezes Cardiovascular exam: PRESENT: RRR. ABSENT: diastolic murmur, rubs, systolic murmur Pulses: PRESENT: normal dorsalis pedis pul Vascular exam: PRESENT: normal capillary refill GI/Abdominal exam: PRESENT: normal bowel sounds, soft. ABSENT: distended, guarding, mass, organolmegaly, rebound, tenderness Rectal exam: PRESENT: deferred Extremities exam: PRESENT: full ROM. ABSENT: calf tenderness, clubbing, pedal edema Neurological exam: PRESENT: alert, awake, oriented to person, oriented to place, oriented to time, oriented to situation, CN II-XII grossly intact. ABSENT: motor sensory deficit Psychiatric exam: PRESENT: appropriate affect, normal mood. ABSENT: homicidal ideation, suicidal ideation Skin exam: PRESENT: dry, intact, warm. ABSENT: cyanosis, rash Results Laboratory Results: 10/15/18 05:24 10/14/18 16:19 10/14/18 10/14/18 10/14/18 16:19 16:19 16:19 WBC Cancelled RBC Cancelled Hgb Cancelled Hct Cancelled MCV Cancelled MCH Cancelled MCHC Cancelled RDW Cancelled Plt Count Cancelled Seg Neutrophils % Cancelled Lymphocytes % Cancelled Monocytes % Cancelled Eosinophils % Cancelled Basophils % Cancelled Absolute Neutrophils Cancelled Absolute Lymphocytes Cancelled Absolute Monocytes Cancelled Absolute Eosinophils Cancelled Absolute Basophils Cancelled Retic Count (auto) Absolute Retic Sodium 138.5 Potassium 4.5 Chloride 106 Carbon Dioxide 23 Anion Gap 10 BUN 17 Creatinine 0.93 Est GFR ( Amer) > 60 Est GFR (Non-Af Amer) 59 L Glucose 114 H Calcium 9.2 Magnesium 2.1 Iron 18.8 L TIBC 402 % Saturation 5 Ferritin 13.60 Total Bilirubin 0.2 AST 16 ALT 27 Alkaline Phosphatase 104 Total Protein 6.6 Albumin 4.0 Vitamin B12 684.0 Folate > 20.00 Blood Type Antibody Screen 10/14/18 10/14/18 10/14/18 18:28 18:28 19:07 WBC 8.4 RBC 2.70 L Hgb 6.8 L Hct 21.3 L MCV 79 L D MCH 25.2 L MCHC 31.9 L RDW 18.2 H Plt Count 438 Seg Neutrophils % 79.5 H Lymphocytes % 10.9 L Monocytes % 8.3 Eosinophils % 0.1 Basophils % 1.2 Absolute Neutrophils 6.7 Absolute Lymphocytes 0.9 Absolute Monocytes 0.7 Absolute Eosinophils 0.0 Absolute Basophils 0.1 Retic Count (auto) 2.40 Absolute Retic 0.065 Sodium Potassium Chloride Carbon Dioxide Anion Gap BUN Creatinine Est GFR ( Amer) Est GFR (Non-Af Amer) Glucose Calcium Magnesium Iron TIBC % Saturation Ferritin Total Bilirubin AST ALT Alkaline Phosphatase Total Protein Albumin Vitamin B12 Folate Blood Type A POSITIVE Antibody Screen NEGATIVE 10/15/18 05:24 WBC 5.8 RBC 3.64 L Hgb 9.6 L D Hct 29.0 L MCV 80 MCH 26.4 L MCHC 33.2 RDW 16.8 H Plt Count 337 Seg Neutrophils % 66.6 Lymphocytes % 16.6 Monocytes % 14.1 H Eosinophils % 1.7 Basophils % 1.0 Absolute Neutrophils 3.9 Absolute Lymphocytes 1.0 Absolute Monocytes 0.8 Absolute Eosinophils 0.1 Absolute Basophils 0.1 Retic Count (auto) Absolute Retic Sodium Potassium Chloride Carbon Dioxide Anion Gap BUN Creatinine Est GFR ( Amer) Est GFR (Non-Af Amer) Glucose Calcium Magnesium Iron TIBC % Saturation Ferritin Total Bilirubin AST ALT Alkaline Phosphatase Total Protein Albumin Vitamin B12 Folate Blood Type Antibody Screen 10/14/18 16:19 Troponin I < 0.012 NT-Pro-B Natriuret Pep 467 H Impressions: Head CT 10/14/18 15:52 IMPRESSION: MILD CHRONIC CHANGES OF ATROPHY AND MICROVASCULAR ISCHEMIA. NO ACUTE PROCESS. EVIDENCE OF ACUTE STROKE: NO. Chest X-Ray 10/14/18 15:53 IMPRESSION: Chronic lung changes with no acute cardiopulmonary findings. Assessment & Plan - Diagnosis (1) Anemia Qualifiers: Anemia type: iron deficiency Iron deficiency anemia type: chronic blood loss Qualified Code(s): D50.0 - Iron deficiency anemia secondary to blood loss (chronic) Is this a current diagnosis for this admission?: Yes Plan: Iron deficiency anemia secondary to chronic blood loss from AVMs, giving her 1 dose of IV iron today. No other interventions really possible. Not needing another scope right now. Okay for discharge today after IV iron given. We will see her back next week.
[2018-10-15] MEDS ORDERED: VENLAFAXINE HCL 37.5 MG CAP.SR.24H PO SCH (10:00)
[2018-10-15] MEDS ORDERED: FERUMOXYTOL (NON-ESRD) 510 MG/NS 100 ML IV ONE ×2 (10:00)
[2018-10-15] MEDS ORDERED: FOLIC ACID 1 MG TABLET PO SCH (10:00)
[2018-10-15] MEDS ORDERED: LOSARTAN POTASSIUM 50 MG TABLET PO SCH (10:00)
[2018-10-15] MEDS ORDERED: DOCUSATE SODIUM 100 MG CAPSULE PO SCH (10:00)
[2018-10-15] MEDS ORDERED: FLECAINIDE ACETATE 100 MG TABLET PO SCH (10:00)
[2018-10-15] MEDS ORDERED: DILTIAZEM HCL 240 MG CAPSULE.CR PO SCH (10:00)
[2018-10-15] MEDS ORDERED: LUBIPROSTONE 8 MCG CAPSULE PO SCH (10:00)
[2018-10-15 12:55] VITALS: BP 130/53
--- NOTE | 2018-10-15 23:00 | EKG REPORT ---
SEVERITY:- BORDERLINE ECG - SINUS RHYTHM PROBABLE LEFT ATRIAL ABNORMALITY : Confirmed by: Sergey Mike 15-Oct-2018 22:59:39
--- NOTE | 2018-10-16 13:15 | PDOC DISCHARGE SUMMARY ---
General - Admit/Disc Date/PCP Admission Date/Primary Care Provider: 10/14/18 20:00 CATHY CAMARGO MD Discharge Date: 10/15/18 - Discharge Diagnosis (1) Anemia due to blood loss, chronic Is this a current diagnosis for this admission?: Yes Summary: The patient has had endoscopies in the past. She reports that no active bleeding lesions were identified and there were no suspicious areas for blood loss. I explained to the patient that occasionally intravenous malformations formed in the small bowel and he would not be able to visualize these but they would be responsible for blood loss. The patient was given 2 units of packed red blood cells. Her hemoglobin improved to 9.6. She was seen by hematology. 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 She will follow-up with hematology next week. (2) Severe protein-calorie malnutrition Is this a current diagnosis for this admission?: Yes Summary: The patient has had limited appetite for some time. Her body mass index is only 14.8 and she reports a very poor appetite. Continue workup with gastr oenterology to look for potential sources of her decreased appetite. Encourage protein supplements. (3) Chest pain Is this a current diagnosis for this admission?: Yes Summary: Chest pain resolved. Troponins were negative. She does have history of coronary artery disease and so the chest pain was likely cardiac in nature but s econdary to her severe anemia. (4) Coronary artery disease Is this a current diagnosis for this admission?: Yes (5) Near syncope Is this a current diagnosis for this admission?: Yes Summary: Near syncope secondary to severe anemia. Asymptomatic this morning posttransfusion. - Additional Information Resuscitation Status: Full Code Discharge Diet: Cardiac Discharge Activity: Activity As Tolerated Home Medications: Acetaminophen [Tylenol 325 mg Tablet] 325 mg PO Q8HP PRN 10/14/18 Albuterol Sulfate [Proair HFA Inhalation Aerosol 8.5 gm MDI] 2 puff IH Q6HP PRN 10/14/18 Albuterol Sulfate [Ventolin 0.083% Neb 2.5 mg/3 mL Ampul] 1 vial NEB Q6HP PRN 10/14/18 Diltiazem HCl [Diltiazem 24Hr ER] 240 mg PO DAILY 10/14/18 Docusate Sodium [Colace 100 mg Capsule] 100 mg PO BID 10/14/18 Fexofenadine HCl [Jazmin] 180 mg PO DAILY 10/14/18 Flecainide Acetate [Tambocor 100 mg Tablet] 100 mg PO BID 10/14/18 Folic Acid [Folvite 1 mg Tablet] 1 mg PO DAILY 10/14/18 Latanoprost [Xalatan 0.005% Oph Soln 2.5 ml] 1 drop OU QHS 10/14/18 Losartan Potassium [Cozaar 50 mg Tablet] 50 mg PO DAILY 10/14/18 Lubiprostone [Amitiza 8 Mcg Capsule] 8 mcg PO BID 10/14/18 Polyethylene Glycol 3350 [Miralax Powder 17 gm/Packet] 17 gm PO DAILYP PRN 10/14/18 Simvastatin [Zocor 10 mg Tablet] 10 mg PO QHS 10/14/18 Tiotropium [place] [Spiriva Respimat] 2 puff IH DAILY 10/14/18 Venlafaxine HCl ER [Effexor Xr 37.5 mg Cap.sr] 37.5 mg PO DAILY 10/14/18 Vit C/E/Zn/Coppr/Lutein/Zeaxan [Preservision Areds 2 Softgel] 2 cap PO DAILY 10/14/18 Acetaminophen [Tylenol 325 mg Tablet] 650 mg PO Q4HP PRN tablet 10/15/18 Diltiazem HCl [Cardizem Cd 240 mg Capsule.cr] 240 mg PO DAILY capsule.cr 10/15/18 History of Present Illness Patient complains of: Near syncopal episode while shopping. She also experienced chest pain. History of Present Illness: ELIECER NORMAN is a 73 year old female with history of coronary artery disease as well as weight loss and severe anemia. She was shopping and developed acute onset of lightheadedness associated with chest discomfort. EMS was called to the scene. She was evaluated in the emergency department was found to have a hemoglobin of 6.4. This is not a new problem for her. College Service Officer recommendation was to transfuse and if stable discharge in the morning. She was referred to the hospitalist for admission. Hospital Course Hospital Course: The patient had an uneventful hospital course. She received 2 units of packed red blood cells and was asymptomatic this morning. Hematology has ordered a dose of intravenous iron and she is going to discharged home after that dose is completed. Physical Exam Vital Signs: Temp Pulse Resp BP Pulse Ox 98.1 F 68 16 138/56 H 100 10/15/18 08:07 10/15/18 08:07 10/15/18 08:07 10/15/18 08:07 10/15/18 08:07 Intake & Output 10/14/18 10/15/18 10/16/18 06:59 06:59 06:59 Intake Total 1250 Balance 1250 Weight 40.3 kg General appearance: PRESENT: no acute distress, thin - Extremely thin, well- developed Head exam: PRESENT: normocephalic Eye exam: PRESENT: conjunctiva pale. ABSENT: scleral icterus Ear exam: PRESENT: normal external ear exam Mouth exam: PRESENT: moist, tongue midline Respiratory exam: PRESENT: clear to auscultation brayan, symmetrical, unlabored. ABSENT: rales, rhonchi, wheezes Cardiovascular exam: PRESENT: RRR, +S1, +S2 GI/Abdominal exam: PRESENT: normal bowel sounds, soft. ABSENT: distended, tenderness Rectal exam: PRESENT: deferred Extremities exam: ABSENT: pedal edema Musculoskeletal exam: PRESENT: other - Marked loss of muscle mass Neurological exam: PRESENT: alert - and subcutaneous fat., awake, oriented to person, oriented to place, oriented to time, oriented to situation, CN II-XII grossly intact Psychiatric exam: PRESENT: appropriate affect. ABSENT: agitated, anxious Focused psych exam: ABSENT: delusional, restlessness Results Laboratory Results: 10/15/18 05:24 10/14/18 16:19 10/14/18 10/14/18 10/14/18 16:19 16:19 16:19 WBC Cancelled RBC Cancelled Hgb Cancelled Hct Cancelled MCV Cancelled MCH Cancelled MCHC Cancelled RDW Cancelled Plt Count Cancelled Seg Neutrophils % Cancelled Lymphocytes % Cancelled Monocytes % Cancelled Eosinophils % Cancelled Basophils % Cancelled Absolute Neutrophils Cancelled Absolute Lymphocytes Cancelled Absolute Monocytes Cancelled Absolute Eosinophils Cancelled Absolute Basophils Cancelled Retic Count (auto) Absolute Retic Sodium 138.5 Potassium 4.5 Chloride 106 Carbon Dioxide 23 Anion Gap 10 BUN 17 Creatinine 0.93 Est GFR ( Amer) > 60 Est GFR (Non-Af Amer) 59 L Glucose 114 H Calcium 9.2 Magnesium 2.1 Iron 18.8 L TIBC 402 % Saturation 5 Ferritin 13.60 Total Bilirubin 0.2 AST 16 ALT 27 Alkaline Phosphatase 104 Total Protein 6.6 Albumin 4.0 Vitamin B12 684.0 Folate > 20.00 Blood Type Antibody Screen 10/14/18 10/14/18 10/14/18 18:28 18:28 19:07 WBC 8.4 RBC 2.70 L Hgb 6.8 L Hct 21.3 L MCV 79 L D MCH 25.2 L MCHC 31.9 L RDW 18.2 H Plt Count 438 Seg Neutrophils % 79.5 H Lymphocytes % 10.9 L Monocytes % 8.3 Eosinophils % 0.1 Basophils % 1.2 Absolute Neutrophils 6.7 Absolute Lymphocytes 0.9 Absolute Monocytes 0.7 Absolute Eosinophils 0.0 Absolute Basophils 0.1 Retic Count (auto) 2.40 Absolute Retic 0.065 Sodium Potassium Chloride Carbon Dioxide Anion Gap BUN Creatinine Est GFR ( Amer) Est GFR (Non-Af Amer) Glucose Calcium Magnesium Iron TIBC % Saturation Ferritin Total Bilirubin AST ALT Alkaline Phosphatase Total Protein Albumin Vitamin B12 Folate Blood Type A POSITIVE Antibody Screen NEGATIVE 10/15/18 05:24 WBC 5.8 RBC 3.64 L Hgb 9.6 L D Hct 29.0 L MCV 80 MCH 26.4 L MCHC 33.2 RDW 16.8 H Plt Count 337 Seg Neutrophils % 66.6 Lymphocytes % 16.6 Monocytes % 14.1 H Eosinophils % 1.7 Basophils % 1.0 Absolute Neutrophils 3.9 Absolute Lymphocytes 1.0 Absolute Monocytes 0.8 Absolute Eosinophils 0.1 Absolute Basophils 0.1 Retic Count (auto) Absolute Retic Sodium Potassium Chloride Carbon Dioxide Anion Gap BUN Creatinine Est GFR ( Amer) Est GFR (Non-Af Amer) Glucose Calcium Magnesium Iron TIBC % Saturation Ferritin Total Bilirubin AST ALT Alkaline Phosphatase Total Protein Albumin Vitamin B12 Folate Blood Type Antibody Screen 10/14/18 16:19 Troponin I < 0.012 NT-Pro-B Natriuret Pep 467 H Impressions: Head CT 10/14/18 15:52 IMPRESSION: MILD CHRONIC CHANGES OF ATROPHY AND MICROVASCULAR ISCHEMIA. NO ACUTE PROCESS. EVIDENCE OF ACUTE STROKE: NO. Chest X-Ray 10/14/18 15:53 IMPRESSION: Chronic lung changes with no acute cardiopulmonary findings. Qualifiers - * PATIENT BEING DISCHARGED WITH ANY OF THE FOLLOWING DIAGNOSIS: No Plan Discharge Plan: Discharge to home. Follow-up with hematology and gastroenterology. Time Spent: Greater than 30 Minutes
== END 2018-10-15 14:07 | disposition home or self-care (01) ==
LOC: ER 14:10 → EH 20:00 → 5 22:42
PROVIDERS: ADMIT Emergency Medicine; ATTEND Emergency Medicine
PROC: 30233N1 Transfusion of Nonautologous Red Blood Cells into Peripheral Vein, Percutaneous Approach (ICD-10-PCS; principal; 2018-10-14)
PROC: 30233N1 Transfusion of Nonautologous Red Blood Cells into Peripheral Vein, Percutaneous Approach (ICD-10-PCS; 2018-10-15)
DX: D50.0 Iron deficiency anemia secondary to blood loss (chronic) (principal); Q27.33 Arteriovenous malformation of digestive system vessel; E43 Unspecified severe protein-calorie malnutrition; R07.89 Other chest pain; Z68.1 Body mass index [BMI] 19.9 or less, adult; I25.118 Atherosclerotic heart disease of native coronary artery with other forms of angina pectoris; R55 Syncope and collapse; I48.91 Unspecified atrial fibrillation; I73.9 Peripheral vascular disease, unspecified; R53.1 Weakness; R51 Headache; J44.9 Chronic obstructive pulmonary disease, unspecified; I10 Essential (primary) hypertension; E78.5 Hyperlipidemia, unspecified; Z80.6 Family history of leukemia; Z79.899 Other long term (current) drug therapy; Z98.890 Other specified postprocedural states; Z87.891 Personal history of nicotine dependence; Z90.49 Acquired absence of other specified parts of digestive tract; Z95.828 Presence of other vascular implants and grafts; Z82.49 Family history of ischemic heart disease and other diseases of the circulatory system
CPT/HCPCS: 93005; 99291; 96374; 96375; 86900; 86901; 36415 ×2; 36430; 86850; 82607; 82728; 82746; 83540; 83550; 83735; 85025 ×2; 85045; 80053; 84484; 86920; 83880; 71045; 70450; 93010; 94640 ×2; P9016 ×2; A9270 ×10; Q0138; J1940; J2270; J2550; J3490 ×6

== ENCOUNTER 2019-01-19 07:48 | Day surgery (SDC) | payer MEDICARE, OTHER ==
[~2019-01-19 07:48] MED LIST changes: +DIPHENHYDRAMINE HCL 50 MG/ML VIAL ONE; +EPINEPHRINE INJ 1 MG/10 ML DISP.SYRIN ONE; +FENTANYL CITRATE INJ/PF 100 MCG/2 ML AMPUL ONE; +FLUMAZENIL INJ 0.5 MG/5 ML VIAL ONE; +GLUCAGON,HUMAN RECOMB 1 MG INJ ONE; +NALOXONE HCL INJ/PF 0.4 MG/1 ML SDV ONE; +ONDANSETRON HCL INJ/PF 4 MG/2 ML SDV ONE; -PROPOFOL INJ 200 MG/20 ML VIAL IV ONE
[2019-01-19] MEDS: MIDAZOLAM 2 MG/2 ML INJ ONE ×2 (08:26→08:30)
--- NOTE | 2019-01-19 09:10 | Operative Report ---
Operative Report DATE OF SURGERY: 01/19/19 Operative Report: The risks benefits and alternatives of the procedure explained to the patient in detail and informed consent is obtained.A GIF Olympus video scope was inserted into the patient's mouth and hypopharynx, the esophagus is identified intubated and insufflated, the scope was then advanced through the esophagus stomach and duodenum, retroflexion maneuver is done, the esophagus stomach and first and second portions of the duodenum examined. PREOPERATIVE DIAGNOSIS: Melena POSTOPERATIVE DIAGNOSIS: 3 duodenal AVMs ablated in situ OPERATION: EGD with ablation of AVMs SURGEON: EFREM GUTIERREZ ANESTHESIA: Moderate Sedation - 4 mg of Versed, 25 mcg of fentanyl. Conscious sedation monitoring time 30 minutes. TISSUE REMOVED OR ALTERED: As noted above COMPLICATIONS: None. ESTIMATED BLOOD LOSS: None. INTRAOPERATIVE FINDINGS: As noted above. PROCEDURE: Patient tolerated the procedure well. No immediate postprocedure complications are noted. Patient is discharged in good condition. Discharge date 01/19/2019. Discharge diet: Regular. Discharge activity: Regular. 2 to 3-week follow-up to discuss findings. Patient is instructed to call the office or proceed to the emergency room should there be any further problems or questions.
[2019-01-19 09:59] VITALS: BP 131/52
== END 2019-01-19 09:45 | disposition home or self-care (01) ==
LOC: END 07:48
PROVIDERS: ATTEND Internal Medicine Gastroenterology
DX: Q27.33 Arteriovenous malformation of digestive system vessel (principal); K92.1 Melena; D64.9 Anemia, unspecified; I10 Essential (primary) hypertension; F17.210 Nicotine dependence, cigarettes, uncomplicated; Z79.899 Other long term (current) drug therapy; Z79.51 Long term (current) use of inhaled steroids
CPT/HCPCS: 43270; J2250; J3010; J2405; J0171; J1200; J1610; J2310; J3490

== ENCOUNTER → 2019-07-06 | Outpatient (CLI) | payer MEDICARE, OTHER ==
--- NOTE | 2019-07-06 11:07 | RADIOLOGY REPORT (SQ) ---
EXAM DESCRIPTION: CT HEAD WITHOUT COMPLETED DATE/TIME: 07/06/2019 10:44 am REASON FOR STUDY: W19.XXXA UNSPECIFIED FALL, INITIAL ENCOUNTER W19.XXXA UNSPECIFIED FALL, INITIAL E NCOUNTER R51 HEADACHE COMPARISON: CT of the head without contrast from 10/14/2018. TECHNIQUE: Axial images acquired through the brain without intravenous contrast. Images reviewed wi th bone, brain and subdural windows. Additional sagittal and coronal reconstructions were generated. Images stored on PACS. All CT scanners at this facility use dose modulation, iterative reconstruction, and/or weight based d osing when appropriate to reduce radiation dose to as low as reasonably achievable (ALARA). [facility]: Dose Right [facility]: CareDose [facility]: Dose Right [facility]: Teradose 4D [facility]: MyFab RADIATION DOSE: CT Rad equipment meets quality standard of care and radiation dose reduction techniq ues were employed. CTDIvol: 48.6 mGy. DLP: 880 mGy-cm. LIMITATIONS: None. FINDINGS: There is age-appropriate cerebral and cerebellar volume loss; the caliber the ventricles i s concordant with the degree of sulcation. The confluent areas of hypoattenuation within the suprate ntorial periventricular and subcortical white matter are unchanged and are favored to represent the s equela of chronic microvascular ischemia. There is no acute intracranial hemorrhage, vascular territ orial infarct, extra-axial fluid collection, mass effect or midline shift. There is no effacement of cerebral sulci or basal subarachnoid cisterns. The crespo-white matter differentiation is preserved. The globes are aphakic. The orbits are intact. The paranasal sinuses and the mastoid air cells are clear. There is no fracture of the calvarium. IMPRESSION: No acute intracranial abnormality. EVIDENCE OF ACUTE STROKE: NO. COMMENT: Quality ID # [id number]: Final reports with documentation of one or more dose reduction techniques (e.g., Automated exposure control, adjustment of the mA and/or kV according to patient size, use of iterative reconstruction technique) TECHNICAL DOCUMENTATION: JOB ID: [id number] [employer]- All Rights Reserved Reading location - IP/workstation name: [email or web address]
== END ==
LOC: RAD 10:24
PROVIDERS: ATTEND Physician Assistant Medical
DX: R51 Headache (principal); W19.XXXA Unspecified fall, initial encounter
CPT/HCPCS: 70450

== ENCOUNTER → 2019-07-26 | Outpatient (CLI) | payer MEDICARE, OTHER ==
--- NOTE | 2019-07-26 10:33 | RADIOLOGY REPORT (SQ) ---
EXAM DESCRIPTION: MRI HEAD COMBO COMPLETED DATE/TIME: 07/26/2019 8:41 am REASON FOR STUDY: REPEATED FALLS (R29.6) R29.6 REPEATED FALLS COMPARISON: None. TECHNIQUE: Multiplanar imaging includes noncontrasted T1, T2, FLAIR, Diffusion with ADC map and post gadolinium contrast T1 sequences. Images stored on PACS. CONTRAST TYPE AND DOSE: 9 mL Dotarem RENAL FUNCTION: Not indicated. ACR Type II contrast agent associated with few, if any, unconfounded cases of NSF LIMITATIONS: None. FINDINGS: ANATOMY: No anomalies. Normal vascular flow voids. Pituitary fossa normal. CSF SPACES: Age-appropriate. No extra-axial hemorrhage or mass or abnormal enhancement. CEREBRUM: Marked high -signal intensity lesions scattered throughout the white matter on FLAIR imagin g with distribution suggesting chronic micro-vascular ischemic change. No evidence of acute hemorrha ge, mass, extraaxial fluid collection or acute ischemic change. No enhancing lesions. POSTERIOR FOSSA: FLAIR hyperintense white matter disease in the vickey. Cerebellum unremarkable. Trac e fluid in the left mastoid air cells. IAC's intact. ORBITS: No masses. Globes normal. PARANASAL SINUSES: No fluid levels. Mucosa normal. DIFFUSION: Normal. No evidence of recent infarct. OTHER: No other significant finding. IMPRESSION: 1. Pronounced small vessel changes, chronic ischemic disease. 2. No acute or suspicious findings. No enhancing lesions. No recent CVA. EVIDENCE OF ACUTE STROKE: NO. TECHNICAL DOCUMENTATION: JOB ID: [id number] [employer]- All Rights Reserved Reading location - IP/workstation name: [email or web address]
== END ==
LOC: RAD 06:36
PROVIDERS: ATTEND Internal Medicine
DX: I67.82 Cerebral ischemia (principal); R29.6 Repeated falls
CPT/HCPCS: 70553; A9576; 82565

== ENCOUNTER 2019-10-25 09:05 | Emergency (ER) | payer MEDICARE, OTHER ==
--- NOTE | 2019-10-25 09:26 | ER Document Report ---
ED General - General Chief Complaint: Hip Injury Stated Complaint: RIGHT HIP PAIN/FALL Time Seen by Provider: 10/25/19 09:10 Primary Care Provider: ANGELICA HEMPHILL MD [ACTIVE STAFF] - Follow up as needed Mode of Arrival: Medic Information source: Patient, Emergency Med Personnel TRAVEL OUTSIDE OF THE [place] IN LAST 30 DAYS: No - HPI Onset: Yesterday Onset/Duration: Sudden Quality of pain: Achy Severity: Moderate Pain Level: 2 Context: Patient is a 74-year-old female presenting to the emergency department chief complaint of right-sided hip pain. Patient states that about 8 PM last night she was walking tripped and fell injuring her right hip. When asked why she did not come in last night patient stated that it was late and dark and she did not want to risk having someone carry her down her stairs in the dark. Patient states she does have a history of falls because of poor balance. Patient does have sensation distally. Patient denies chest pain shortness of breath palpitations or dizziness prior to the fall. Associated symptoms: None Exacerbated by: Movement Similar symptoms previously: Yes Recently seen / treated by doctor: No - Related Data Allergies/Adverse Reactions: pantoprazole sodium [From Protonix] Allergy (Intermediate, Verified 01/19/19 07:45) itching pneumococcal vaccine [Pneumococcal Vaccine] Allergy (Intermediate, Verified 01/19/19 07:45) Swelling, ITCHING AT SITE ranitidine [Ranitidine] Allergy (Verified 01/19/19 07:45) ITCHING Past Medical History - General Information source: Patient - Social History Smoking Status: Current Every Day Smoker Cigarette use (# per day): Yes Chew tobacco use (# tins/day): No Smoking Education Provided: Yes Frequency of alcohol use: None Drug Abuse: None Lives with: Alone Family History: None Patient has suicidal ideation: No Patient has homicidal ideation: No - Past Medical History Cardiac Medical History: Reports: Hx Atrial Fibrillation, Hx Coronary Artery Disease - HIGH CHOLESTEROL, HEART BLOCKS, Hx Hypercholesterolemia, Hx Hypertension, Hx Peripheral Vascular Disease - right FEMORAL stent Denies: Hx Congestive Heart Failure, Hx Heart Attack, Hx Pulmonary Embolism, Hx Heart Murmur Pulmonary Medical History: Reports: Hx Asthma, Hx COPD, Hx Pneumonia Denies: Hx Bronchitis, Hx Respiratory Failure, Hx Sleep Apnea, Hx Tuberculosis Neurological Medical History: Denies: Hx Cerebrovascular Accident, Hx Seizures, Hx Parkinson's Disease Endocrine Medical History: Denies: Hx Diabetes Mellitus Type 1, Hx Diabetes Mellitus Type 2, Hx Hyperthyroidism, Hx Hypothyroidism Renal/ Medical History: Denies: Hx End Stage Renal Disease, Hx Kidney Stones, Hx Peritoneal Dialysis Malignancy Medical History: Denies: Hx Leukemia, Hx Lung Cancer GI Medical History: Reports: Hx Gastroesophageal Reflux Disease, Hx Irritable Bowel. Denies: Hx Cirrhosis, Hx Crohn's Disease, Hx Hepatitis, Hx Hiatal Hernia, Hx Liver Failure, Hx Pancreatitis, Hx Ulcer, Hx Ulcerative Colitis Musculoskeletal Medical History: Reports Hx Arthritis, Denies Hx Gout, Denies Hx Multiple Sclerosis Skin Medical History: Denies Hx Eczema, Denies Hx Psoriasis Psychiatric Medical History: Reports: Hx Depression Denies: Hx Bipolar Disorder, Hx Schizophrenia Infectious Medical History: Denies: Hx Hepatitis, Hx HIV Past Surgical History: Reports: Hx Appendectomy, Hx Bowel Surgery - colon resection, Hx Breast Surgery - BENIGN BX, Hx Hysterectomy, Hx Vascular Surgery - RIGHT FEMORAL ARTERY STENT, Other - EGDs and colonoscopies. Denies: Hx Section, Hx Cholecystectomy, Hx Colostomy, Hx Coronary Artery Bypass Graft, Hx Gastric Bypass Surgery, Hx Herniorrhaphy, Hx Mastectomy, Hx Pacemaker, Hx Tonsillectomy, Hx Tubal Ligation - Immunizations Hx Diphtheria, Pertussis, Tetanus Vaccination: Yes Hx Pneumococcal Vaccination: 06/30/13 Review of Systems - Review of Systems Constitutional: No symptoms reported EENT: No symptoms reported Cardiovascular: No symptoms reported Respiratory: No symptoms reported Gastrointestinal: No symptoms reported Genitourinary: No symptoms reported Female Genitourinary: No symptoms reported Musculoskeletal: See HPI Skin: No symptoms reported Hematologic/Lymphatic: No symptoms reported Neurological/Psychological: No symptoms reported -: Yes All other systems reviewed and negative Physical Exam - Vital signs Vitals: Temp Pulse Resp BP Pulse Ox 97.7 F 75 16 177/66 H 96 10/25/19 09:16 10/25/19 09:16 10/25/19 09:16 10/25/19 09:16 10/25/19 09:16 - Notes Notes: PHYSICAL EXAMINATION: GENERAL: Patient is a pleasant 74-year-old female ,well-appearing, well- nourished and in no acute distress. HEAD: Atraumatic, normocephalic. EYES: Pupils equal round and reactive to light, extraocular movements intact, sclera anicteric, conjunctiva are normal. ENT: nares patent, oropharynx clear without exudates. Moist mucous membranes. NECK: Normal range of motion, supple without lymphadenopathy, no appreciable JVD LUNGS: Lungs clear to auscultation bilaterally and equal. No wheezes rales or rhonchi. HEART: Regular rate and rhythm without murmurs ABDOMEN: Soft, nontender, normal bowel sounds. No guarding, no rebound. No masses appreciated. EXTREMITIES: Decreased range of motion to the right lower extremity secondary to hip pain. Patient has normal anatomy distally no tenderness patient is able to flex and extend at the ankle sensation is intact distally. NEUROLOGICAL: No focal neurological deficits. Moves all extremities spontaneously and on command. SKIN: Warm, Dry, and intact. Normal turgor, no rashes or lesions noted. Course - Re-evaluation Re-evalutation: 10/25/19 11:42 Patient has been re-evaluated several times while in the ER. She has remaiined stable without complication. After receiving results of the plain film I was still uncomfortable because of the patient's pain level and we obtained a CT of the pelvis that did demonstrate a right-sided nondisplaced trochanter fracture. I spoke with Dr. Prasad, orthopedics manager action and he stated that this should heal by conservative management. Patient does have a Rollator and a four-point cane at home which she states she will start using much more frequently. She understands the concept of conservative management and will call the orthopedics office for follow-up. Patient will be discharged home via EMS in stable condition. - Vital Signs Vital signs: Temp Pulse Resp BP Pulse Ox 97.7 F 75 16 177/66 H 96 10/25/19 09:16 10/25/19 09:16 10/25/19 09:16 10/25/19 09:16 10/25/19 09:16 - Diagnostic Test Radiology reviewed: Image reviewed, Reports reviewed Discharge - Discharge Clinical Impression: Accidental fall Qualifiers: Encounter type: initial encounter Qualified Code(s): W19.XXXA - Unspecified fall, initial encounter Trochanteric fracture Qualifiers: Encounter type: initial encounter Fracture type: closed Laterality: right Qualified Code(s): S72.101A - Unspecified trochanteric fracture of right femur, initial encounter for closed fracture Condition: Stable Disposition: HOME, SELF-CARE Additional Instructions: Please rest use ice to your right hip. Tylenol and Motrin as needed for pain management. Please use your walker and/or cane as needed. Follow-up with orthopedics as recommended. Referrals: ANGELICA HEMPHILL MD [ACTIVE STAFF] - Follow up as needed OBED PRASAD DO [ACTIVE STAFF] - Follow up as needed
--- NOTE | 2019-10-25 10:03 | RADIOLOGY REPORT (SQ) ---
EXAM DESCRIPTION: HIP RIGHT AP/LATERAL IMAGES COMPLETED DATE/TIME: 10/25/2019 9:48 am REASON FOR STUDY: bed 11 fall right hip pain +tenderness COMPARISON: None. NUMBER OF VIEWS: Two views. TECHNIQUE: AP and frog-leg view of the right hip. LIMITATIONS: None. FINDINGS: MINERALIZATION: Normal. RIGHT HIP: No fracture or dislocation. No worrisome bone lesions. No contour deformity. No joint sp rosa narrowing. OPPOSITE HIP: No fracture or dislocation. No worrisome bone lesions. SOFT TISSUES: No findings. OTHER: No other significant finding. IMPRESSION: NEGATIVE STUDY OF THE RIGHT HIP. NO EXPLANATION FOR PAIN. TECHNICAL DOCUMENTATION: JOB ID: [id number] 2010 [employer]- All Rights Reserved Reading location - IP/workstation name: [email or web address]
--- NOTE | 2019-10-25 10:53 | RADIOLOGY REPORT (SQ) ---
EXAM DESCRIPTION: CT PELVIS WITHOUT IMAGES COMPLETED DATE/TIME: 10/25/2019 10:35 am REASON FOR STUDY: right hip pain COMPARISON: Conventional radiographs done earlier the same day. TECHNIQUE: CT scan of the pelvis performed without intravenous or oral contrast. Images reviewed wi th soft tissue and bone windows. Reconstructed coronal and sagittal MPR images reviewed. All images stored on PACS. All CT scanners at this facility use dose modulation, iterative reconstruction, and/or weight based d osing when appropriate to reduce radiation dose to as low as reasonably achievable (ALARA). [facility]: Dose Right [facility]: CareDose [facility]: Dose Right [facility]: Teradose 4D [facility]: [employer] RADIATION DOSE: CT Rad equipment meets quality standard of care and radiation dose reduction techniq ues were employed. CTDIvol: 10.3 mGy. DLP: 330 mGy-cm. mGy. LIMITATIONS: None. FINDINGS: PELVIC BONES: No acute fracture. No worrisome bone lesions. VISUALIZED SPINE: No acute findings. HIP(S): Nondisplaced right greater trochanteric fracture. PELVIC SOFT TISSUES: No significant findings. EXTRAPELVIC SOFT TISSUES: No significant findings. OTHER: No other significant finding. IMPRESSION: Nondisplaced fracture of the right greater trochanter. TECHNICAL DOCUMENTATION: JOB ID: [id number] Quality ID # [id number]: Final reports with documentation of one or more dose reduction techniques (e.g., Au tomated exposure control, adjustment of the mA and/or kV according to patient size, use of iterative reconstruction technique) 2010 [employer]- All Rights Reserved Reading location - IP/workstation name: [email or web address]
[2019-10-25 12:43] VITALS: BP 162/73
== END 2019-10-25 12:44 | disposition home or self-care (01) ==
LOC: ER 09:05
DX: S72.114A Nondisplaced fracture of greater trochanter of right femur, initial encounter for closed fracture (principal); W19.XXXA Unspecified fall, initial encounter; Z91.81 History of falling; Y93.01 Activity, walking, marching and hiking; I25.10 Atherosclerotic heart disease of native coronary artery without angina pectoris; F17.210 Nicotine dependence, cigarettes, uncomplicated; I10 Essential (primary) hypertension; J44.9 Chronic obstructive pulmonary disease, unspecified; Z88.8 Allergy status to other drugs, medicaments and biological substances; Z88.7 Allergy status to serum and vaccine
CPT/HCPCS: 72192; 99284

== ENCOUNTER → 2020-01-09 | Outpatient (CLI) | payer MEDICARE, OTHER ==
--- NOTE | 2020-01-09 11:22 | WOMENS IMAGING REPORT ---
EXAM DESCRIPTION: BONE DENSITY HIP/SPINE IMAGES COMPLETED DATE/TIME: 01/09/2020 8:47 am REASON FOR STUDY: M81.0 BONE DENSITY M81.0 AGE-RELATED OSTEOPOROSIS W/O CURRENT PATHOLOGICAL FRAC COMPARISON: 11/05/2017 TECHNIQUE: Dual-Energy X-ray Absorptiometry (DEXA) of the AP Spine and Hip. LIMITATIONS: None. FINDINGS: LUMBAR SPINE: The bone mineral density (BMD) measured from L1-L4 in the AP projection correlates with a T-score of -2.4, which is osteopenia as defined by the World Health Organization. BMD Change vs Baseline: -8.7% HIP: The bone mineral density (BMD) measured in the left hip hip correlates with a T-score of -2.8, which is osteoporosis as defined by the World Health Organization. BMD Change vs Baseline: -19.5% 10 year Fracture Risk Assessment: Major Osteoporotic Fracture: Not available. Hip Fracture: Not available. IMPRESSION: 1. LUMBAR SPINE WHO CLASSIFICATION: OSTEOPENIA. 2. HIP WHO CLASSIFICATION: OSTEOPOROSIS. OVERALL ASSESSMENT: WHO CLASSIFICATION: OSTEOPOROSIS. COMMENT: The World Health Organization defines low BMD as follows: T-score: Normal: At or above -1.0 Osteopenia: Between -1.0 and -2.5 Osteoporosis: At or below -2.5 without fractures Established osteoporosis: At or below -2.5 with fractures In general, you may wish to consider: Diagnosis Treatment Follow-up DEXA Normal BMD Prevention 2-3 years Osteopenia Prevention/Therapy 1-2 years Osteoporosis Therapy Yearly TECHNICAL DOCUMENTATION: JOB ID: [id number] 2010 [employer]- All Rights Reserved Reading location - IP/workstation name: [email or web address]
== END ==
LOC: WI 08:25
PROVIDERS: ATTEND Internal Medicine
DX: M81.0 Age-related osteoporosis without current pathological fracture (principal)
CPT/HCPCS: 77080

== ENCOUNTER → 2020-01-23 | Outpatient (CLI) | payer MEDICARE, OTHER ==
--- NOTE | 2020-01-23 11:43 | RADIOLOGY REPORT (SQ) ---
EXAM DESCRIPTION: CT HEAD WITHOUT IMAGES COMPLETED DATE/TIME: 01/23/2020 11:33 am REASON FOR STUDY: HEADACHE R51 HEADACHE COMPARISON: 07/06/2019 TECHNIQUE: Axial images acquired through the brain without intravenous contrast. Images reviewed wi th bone, brain and subdural windows. Additional sagittal and coronal reconstructions were generated. Images stored on PACS. All CT scanners at this facility use dose modulation, iterative reconstruction, and/or weight based d osing when appropriate to reduce radiation dose to as low as reasonably achievable (ALARA). [facility]: Dose Right [facility]: CareDose [facility]: Dose Right [facility]: Teradose 4D [facility]: [employer] RADIATION DOSE: CT Rad equipment meets quality standard of care and radiation dose reduction techniq ues were employed. CTDIvol: 53.2 mGy. DLP: 1017 mGy-cm.mGy. LIMITATIONS: None. FINDINGS: VENTRICLES: Stable in size and configuration. CEREBRUM: No masses. No hemorrhage. No midline shift. Areas of low density in the white matter mos t likely due to chronic micro-vascular ischemic change. No evidence for acute infarction. CEREBELLUM: No masses. No hemorrhage. No alteration of density. No evidence for acute infarction. EXTRAAXIAL SPACES: Age-related involutional change. No fluid collections. No masses. ORBITS AND GLOBE: No intra- or extraconal masses. Normal contour of globe without masses. CALVARIUM: No fracture. PARANASAL SINUSES: No fluid or mucosal thickening. SOFT TISSUES: No mass or hematoma. OTHER: No other significant finding. IMPRESSION: Diffuse periventricular and subcortical white matter changes. These are stable from Jun. No acute intracranial event. EVIDENCE OF ACUTE STROKE: NO. TECHNICAL DOCUMENTATION: JOB ID: [id number] Quality ID # [id number]: Final reports with documentation of one or more dose reduction techniques (e.g., Au tomated exposure control, adjustment of the mA and/or kV according to patient size, use of iterative reconstruction technique) 2010 [employer]- All Rights Reserved Reading location - IP/workstation name: [email or web address]
== END ==
LOC: RAD 11:14
PROVIDERS: ATTEND Physician Assistant
DX: R51 Headache (principal)
CPT/HCPCS: 70450

== ENCOUNTER → 2020-04-17 | Outpatient (CLI) | payer MEDICARE, OTHER ==
--- NOTE | 2020-04-17 17:45 | RADIOLOGY REPORT (SQ) ---
EXAM DESCRIPTION: PET CT SKULL/THIGH IMAGES COMPLETED DATE/TIME: 04/17/2020 3:11 pm REASON FOR STUDY: N28.9 DISORDER OF KIDNEY AND URETER, UNSPECIFIED N28.9 DISORDER OF KIDNEY AND URE TER, UNSPECIFIED COMPARISON: Outside CT abdomen pelvis dated 04/05/2020 demonstrating a bilobed left lower lobe pulmon almas nodule. RADIONUCLIDE AND DOSE: 9.13 mCi F18 FDG The route of agent administration: Intravenous FASTING BLOOD SUGAR: 109 mg/dl CONTRAST TYPE AND DOSE: No CT contrast given. TECHNIQUE: Blood glucose level was verified. Above dose of FDG was injected intravenously. 2-D seg mented attenuation correction images were obtained from the base of the skull to the midthighs. Nonc ontrast CT images were obtained for attenuation correction and fusion with emission images. CT image s were performed without oral or intravenous contrast and are not sensitive for parenchymal lesions. A series of overlapping emission PET images were obtained. Images reviewed and manipulated at [facility] work station by the radiologist. Images stored on PACS. LIMITATIONS: None. FINDINGS: HEAD AND NECK: No areas of abnormal metabolic activity in the soft tissues of the head and neck. CHEST: There is abnormal uptake in the left lower lobe pulmonary nodule. SUV is 6.8 consistent with neoplasm. There is nonspecific uptake in the right and left lateral chest wall left greater than rig ht. No corresponding CT abnormality and suspect this represents physiologic uptake. ABDOMEN AND PELVIS: No areas of abnormal metabolic activity in the abdomen or pelvis. Expected physi ologic activity is present in the genitourinary system and bowel. PROXIMAL LOWER EXTREMITIES: No areas of abnormal metabolic activity in the soft tissues of the lower extremities. BONES: No abnormal metabolic activity in the visualized skeleton. ADDITIONAL CT FINDINGS: Large right renal cyst. Severe atherosclerotic change of the abdominal aorta and pelvic vessels. OTHER: No other significant findings. IMPRESSION: Abnormal uptake in the left lower lobe pulmonary nodule with an SUV of 6.8 consistent wi th neoplasm. There is some uptake in the right and left lateral chest wall was as described most likely physiologi c. No corresponding CT abnormality. TECHNICAL DOCUMENTATION: JOB ID: [id number] 2010 [employer]- All Rights Reserved Reading location - IP/workstation name: [email or web address]
== END ==
LOC: RAD 11:13
PROVIDERS: ATTEND Internal Medicine
DX: R91.1 Solitary pulmonary nodule (principal); N28.1 Cyst of kidney, acquired
CPT/HCPCS: 78815; A9552

== ENCOUNTER → 2020-04-25 | Outpatient (CLI) | payer MEDICARE, OTHER ==
--- NOTE | 2020-04-25 11:53 | RADIOLOGY REPORT (SQ) ---
EXAM DESCRIPTION: MRI HEAD COMBO IMAGES COMPLETED DATE/TIME: 04/25/2020 9:56 am REASON FOR STUDY: C34.32 MALIGNANT NEOPLASM OF LOWER LOBE, LEFT BRONCHUS OR LUNG C34.32 MALIGNANT N EOPLASM OF LOWER LOBE, LEFT BRONCHUS OR MARYBETH COMPARISON: 07/26/2019 TECHNIQUE: Multiplanar imaging includes noncontrasted T1, T2, FLAIR, Diffusion with ADC map and post gadolinium contrast T1 sequences. Images stored on PACS. CONTRAST TYPE AND DOSE: 8 mL Prohance. RENAL FUNCTION: Not indicated. ACR Type II contrast agent associated with few, if any, unconfounded cases of NSF LIMITATIONS: None. FINDINGS: ANATOMY: No anomalies. Normal vascular flow voids. Pituitary fossa normal. CSF SPACES: Atrophy-induced prominence of CSF spaces and ventricles. CEREBRUM: On series 10, image 102, there is a 3 mm enhancing lesion in the right frontal crespo-white m atter junction. There is a potential 2nd smaller lesion on image 99 more posterior and closer to the falx. High-signal intensity lesions scattered throughout the white matter on FLAIR imaging with dis tribution suggesting chronic micro-vascular ischemic change. No evidence of hemorrhage, mass, extraax ial fluid collection or acute ischemic change. No enhancing lesions. POSTERIOR FOSSA: No signal alteration. No hemorrhage. No edema, masses, or mass effect. Internal deejay tory canals, cerebello-pontine angles, mastoids normal. No enhancing lesions. ORBITS: No masses. Globes normal. PARANASAL SINUSES: No fluid levels. Mucosa normal. DIFFUSION: Normal. No evidence of recent infarct. OTHER: No other significant finding. IMPRESSION: Potential early metastatic lesions in the right frontal lobe. EVIDENCE OF ACUTE STROKE: NO. 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
== END ==
LOC: RAD 09:07
PROVIDERS: ATTEND Internal Medicine
DX: C34.32 Malignant neoplasm of lower lobe, left bronchus or lung (principal)
CPT/HCPCS: 82565; 70553; A9576